=== PATIENT | male | born 1935 | race Caucasian/White ===

== ENCOUNTER 2016-04-15 10:34 | Emergency (ER) | payer MEDICARE ==
--- NOTE | 2016-04-15 11:02 | UC ---
Throat Pain/Nasal Sea HPI - HPI Summary HPI Summary: Patient has had sinus congestion. sore throat for 2 weeks. - History of Current Complaint Chief Complaint: UCGU Stated Complaint: URINARY, RESPIRATORY COMPLAINT Hx Obtained From: Patient Onset/Duration: Sudden Onset, Lasting Weeks Severity: Moderate Pain Intensity: 6 Pain Scale Used: 0-10 Numeric Cough: Nonproductive Associated Signs & Symptoms: Positive: Dysphagia, Hoarseness, Sinus Discomfort, Nasal Discharge Related History: Smoking - Epiglottits Risk Factors Epiglottis Risk Factors: Negative - Allergies/Home Medications Allergies/Adverse Reactions: Allergies Allergy/AdvReac Type Severity Reaction Status Date / Time Penicillins Allergy Severe Hives Verified 04/15/16 10:46 Home Medications: Home Medications Ascorbic Acid TAB* [Vitamin C TAB*] 2,000 mg PO DAILY 04/15/16 [History Confirmed 04/15/16] Aspirin [Aspirin Adult Low Dose] 81 mg PO DAILY 04/15/16 [History Confirmed ] Cholecalciferol TAB* [Vitamin D TAB*] 5,000 units PO DAILY 04/15/16 [History Confirmed 04/15/16] Coenzyme Q10 (Ubidecarenone) [Coq-10] 200 mg PO DAILY 04/15/16 [History Confirmed 04/15/16] Fluticasone HFA 110 mcg(NF) [Flovent HFA 110 mcg(NF)] 1 puff INH DAILY 04/15/16 [History Confirmed 04/15/16] Levothyroxine TAB* [Synthroid TAB*] 100 mcg PO DAILY 04/15/16 [History Confirmed 04/15/16] Metoprolol Succinate XL TAB* [Toprol XL TAB*] 50 mg PO DAILY 04/15/16 [History Confirmed 04/15/16] Mirabegron (NF) [Myrbetriq (NF)] 25 mg PO DAILY 04/15/16 [History Confirmed ] Multiple Vitamin [Multivitamins] 1 cap PO DAILY 04/15/16 [History Confirmed ] Nebivolol TAB (NF) [Bystolic TAB (NF)] 5 mg PO DAILY 04/15/16 [History Confirmed 04/15/16] Omeprazole CAP* [Prilosec CAP* 20 MG] 40 mg PO DAILY 04/15/16 [History Confirmed 04/15/16] Oxybutynin XL TAB* [Ditropan Xl TAB*] 10 mg PO DAILY 04/15/16 [History Confirmed 04/15/16] Probiotic Product [Acidophilus] 1 cap PO DAILY 04/15/16 [History Confirmed 04/15] Spironolactone TAB* [Aldactone TAB*] 25 mg PO DAILY 04/15/16 [History Confirmed 04/15/16] Torsemide TAB* [Demadex*] 5 mg PO DAILY 04/15/16 [History Confirmed 04/15/16] Warfarin TAB(*) [Coumadin TAB(*)] 3.5 mg PO DAILY 04/15/16 [History Confirmed ] amLODIPine TAB* [Norvasc TAB*] 5 mg PO DAILY 04/15/16 [History Confirmed ] PMH/Surg Hx/FS Hx/Imm Hx Previously Healthy: Yes Endocrine History Of: Reports: Thyroid Disease Denies: Diabetes, Hyperthyroidism, Hypothyroidism Cardiovascular History Of: Reports: Cardiac Disorders, Hypertension Denies: Pacemaker/ICD Respiratory History Of: Reports: Asthma Neurological History Of: Denies: TIA, Seizures Psychological History Of: Denies: Anxiety, Depression - Surgical History Surgical History: Yes Surgery Procedure, Year, and Place: LEFT SHOULDER ROTATOR CUFF REPAIR 04/2008, APPENDECTOMY , HERNIA , TENNIS ELBOW , PROSTATE(CANCER) 02/2001, BLADDER (CANCER) 06/2011, cardiac cath & QUAD BYPASS 04/11/2011 - Family History Known Family History: Positive: Respiratory Disease - Social History Alcohol Use: None Substance Use Type: None Smoking Status (MU): Former Smoker When Did the Patient Quit Smoking/Using Tobacco: 1962 - Immunization History Most Recent Influenza Vaccination: 2016 Review of Systems Constitutional: Chills Skin: Negative Eyes: Negative ENT: Sore Throat, Ear Ache, Nasal Discharge Respiratory: Shortness Of Breath, Cough Cardiovascular: Negative Gastrointestinal: Negative Genitourinary: Negative Motor: Negative Neurovascular: Negative Musculoskeletal: Negative Neurological: Headache Psychological: Negative All Other Systems Reviewed And Are Negative: Yes Physical Exam Triage Information Reviewed: Yes Appearance: Well-Nourished, Ill-Appearing, Pain Distress Vital Signs: Initial Vital Signs Temp 99.3 F 04/15/16 10:47 Pulse 70 04/15/16 10:47 Resp 20 04/15/16 10:47 BP 150/61 04/15/16 10:47 Pulse Ox 99 04/15/16 10:47 Vital Signs Reviewed: Yes Eye Exam: Normal Eyes: Positive: Conjunctiva Clear ENT: Positive: Hearing grossly normal, Pharynx normal, Nasal congestion, Nasal drainage, TMs normal, Muffled/hoarse voice Dental Exam: Normal Neck exam: Normal Neck: Positive: Supple, Nontender, No Lymphadenopathy Respiratory Exam: Normal Respiratory: Positive: Chest non-tender, No respiratory distress, No accessory muscle use, Decreased breath sounds, Wheezing, Inspiration Cardiovascular Exam: Normal Cardiovascular: Positive: RRR, No Murmur, Pulses Normal Abdominal Exam: Normal Abdomen Description: Positive: Nontender, No Organomegaly, Soft Bowel Sounds: Positive: Present Musculoskeletal Exam: Normal Musculoskeletal: Positive: Strength Intact, ROM Intact Neurological Exam: Normal Neurological: Positive: Alert, Muscle Tone Normal Psychological Exam: Normal Skin Exam: Normal Throat Pain/Nasal Course/Dx - Course Course Of Treatment: history obtained, exam performed, educated on symptom relief OTC and prescribed prednisone. given a spacer for her ventolin inhaler that she currently has. - Differential Dx/Diagnosis Differential Diagnosis/HQI/PQRI: Influenza, Laryngitis, Otitis Media, Pharyngitis, Sinusitis, Tonsillitis, URI Provider Diagnoses: bronchitis. nasal congestion
[2016-04-15] MEDS ORDERED: Ciprofloxacin TAB* 500 MG PO ONE (11:06)
[2016-04-15 11:08] VITALS: BP 150/61
--- NOTE | 2016-04-15 11:15 | UC ---
Complaint Male HPI - HPI Summary HPI Summary: UTI symptoms for 3d. Frequent UTI's in past. Also with mild cold symptoms for past week, drippy nose, mild ST, dry cough. No fever or vomiting. - History of Current Complaint Chief Complaint: UCGU Stated Complaint: URINARY, RESPIRATORY COMPLAINT Time Seen by Provider: 04/15/16 10:56 Hx Obtained From: Patient Onset/Duration: Gradual Onset Timing: Constant Severity Initially: Mild Severity Currently: Mild Location: Suprapubic Character: Constant Pressure Aggravating Factor(s): Nothing Associated Signs And Symptoms: Positive: Dysuria. Negative: Diaphoresis, Back Pain, Fever, Hematuria, Blood in Stool, Rectal Pain, Appetite, Nausea, Vomiting( # Of Episodes =) - Risk Factors Testicular Torsion: Negative - Allergies/Home Medications Allergies/Adverse Reactions: Allergies Allergy/AdvReac Type Severity Reaction Status Date / Time Penicillins Allergy Severe Hives Verified 04/15/16 10:46 Home Medications: Home Medications Ascorbic Acid TAB* [Vitamin C TAB*] 2,000 mg PO DAILY 04/15/16 [History Confirmed 04/15/16] Aspirin [Aspirin Adult Low Dose] 81 mg PO DAILY 04/15/16 [History Confirmed ] Cholecalciferol TAB* [Vitamin D TAB*] 5,000 units PO DAILY 04/15/16 [History Confirmed 04/15/16] Coenzyme Q10 (Ubidecarenone) [Coq-10] 200 mg PO DAILY 04/15/16 [History Confirmed 04/15/16] Fluticasone HFA 110 mcg(NF) [Flovent HFA 110 mcg(NF)] 1 puff INH DAILY 04/15/16 [History Confirmed 04/15/16] Levothyroxine TAB* [Synthroid TAB*] 100 mcg PO DAILY 04/15/16 [History Confirmed 04/15/16] Metoprolol Succinate XL TAB* [Toprol XL TAB*] 50 mg PO DAILY 04/15/16 [History Confirmed 04/15/16] Mirabegron (NF) [Myrbetriq (NF)] 25 mg PO DAILY 04/15/16 [History Confirmed ] Multiple Vitamin [Multivitamins] 1 cap PO DAILY 04/15/16 [History Confirmed ] Nebivolol TAB (NF) [Bystolic TAB (NF)] 5 mg PO DAILY 04/15/16 [History Confirmed 04/15/16] Omeprazole CAP* [Prilosec CAP* 20 MG] 40 mg PO DAILY 04/15/16 [History Confirmed 04/15/16] Oxybutynin XL TAB* [Ditropan Xl TAB*] 10 mg PO DAILY 04/15/16 [History Confirmed 04/15/16] Probiotic Product [Acidophilus] 1 cap PO DAILY 04/15/16 [History Confirmed 04/15] Spironolactone TAB* [Aldactone TAB*] 25 mg PO DAILY 04/15/16 [History Confirmed 04/15/16] Torsemide TAB* [Demadex*] 5 mg PO DAILY 04/15/16 [History Confirmed 04/15/16] Warfarin TAB(*) [Coumadin TAB(*)] 3.5 mg PO DAILY 04/15/16 [History Confirmed ] amLODIPine TAB* [Norvasc TAB*] 5 mg PO DAILY 04/15/16 [History Confirmed ] PMH/Surg Hx/FS Hx/Imm Hx Endocrine History Of: Reports: Thyroid Disease Denies: Diabetes, Hyperthyroidism, Hypothyroidism Cardiovascular History Of: Reports: Cardiac Disorders, Hypertension Denies: Pacemaker/ICD Respiratory History Of: Reports: Asthma Neurological History Of: Denies: TIA, Seizures Psychological History Of: Denies: Anxiety, Depression - Surgical History Surgical History: Yes Surgery Procedure, Year, and Place: LEFT SHOULDER ROTATOR CUFF REPAIR 04/2008, APPENDECTOMY , HERNIA , TENNIS ELBOW , PROSTATE(CANCER) 02/2001, BLADDER (CANCER) 06/2011, cardiac cath & QUAD BYPASS 04/11/2011 - Social History Occupation: Retired Lives: With Family Alcohol Use: None Substance Use Type: None Smoking Status (MU): Former Smoker When Did the Patient Quit Smoking/Using Tobacco: 1962 - Immunization History Most Recent Influenza Vaccination: 2015 Review of Systems Constitutional: Negative Skin: Negative Eyes: Negative ENT: Sore Throat, Nasal Discharge Respiratory: Cough Cardiovascular: Negative Gastrointestinal: Abdominal Pain - suprapubic Genitourinary: Negative Motor: Negative Neurovascular: Negative Musculoskeletal: Negative Neurological: Negative Psychological: Negative All Other Systems Reviewed And Are Negative: Yes Physical Exam Triage Information Reviewed: Yes Appearance: Well-Appearing, No Pain Distress, Well-Nourished Vital Signs: Initial Vital Signs Temp 99.3 F 04/15/16 10:47 Pulse 70 04/15/16 10:47 Resp 20 04/15/16 10:47 BP 150/61 04/15/16 10:47 Pulse Ox 99 04/15/16 10:47 Eye Exam: Normal ENT: Positive: Hearing grossly normal, Pharyngeal erythema, Nasal congestion, Nasal drainage, TMs normal. Negative: Tonsillar swelling, Tonsillar exudate, Muffled/hoarse voice Neck exam: Normal Neck: Positive: Supple Cardiovascular Exam: Normal Musculoskeletal Exam: Normal Neurological Exam: Normal Psychological Exam: Normal Skin Exam: Normal Diagnostics - Laboratory Diagnostic Studies Completed/Ordered: U/A dip positive for leuks, nitrite Complaint Male Course/Dx - Differential Dx/Diagnosis Provider Diagnoses: UTI; URI Discharge - Discharge Plan Condition: Stable Disposition: HOME Prescriptions: Benzonatate CAP* [Tessalon CAP*] 100 mg PO TID PRN #30 cap PRN Reason: Cough Chlorpheniramine-Dm [Coricidin Hbp Cough & Col] 1 tab PO Q6HR PRN #1 box PRN Reason: cough, congestion Ciprofloxacin HCl [Cipro] 500 mg PO BID #20 tab Patient Education Materials: Urinary Tract Infection in Men (ED), Upper Respiratory Infection (ED) Referrals: Moisés Jett MD [Primary Care Provider] -
== END 2016-04-15 11:15 | disposition home or self-care (01) ==
LOC: UCCORT 10:34
DX: N39.0 Urinary tract infection, site not specified (principal); E07.9 Disorder of thyroid, unspecified; I10 Essential (primary) hypertension; Z87.440 Personal history of urinary (tract) infections; Z95.1 Presence of aortocoronary bypass graft; Z88.0 Allergy status to penicillin; Z79.01 Long term (current) use of anticoagulants; Z79.82 Long term (current) use of aspirin
CPT/HCPCS: 87077; 87086; 87186; 99212; A9270-GY; G0463

== ENCOUNTER 2016-05-25 11:17 | Emergency (ER) | payer MEDICARE ==
[2016-05-25 12:13] VITALS: BP 126/61
--- NOTE | 2016-05-28 14:23 | UC ---
Respiratory Complaint HPI - HPI Summary HPI Summary: URI for a week, seems worse. Now coughing up purulent, "cream-colored" phlegm, malaise, low energy. No fever. No sinus congestion. Able to eat and drink. Worse when lying flat at night - History of Current Complaint Chief Complaint: UCRespiratory Stated Complaint: CHEST CONGESTION Time Seen by Provider: 05/25/16 12:25 Hx Obtained From: Patient Onset/Duration: Gradual Onset, Lasting Weeks - 1 Timing: Constant Severity Initially: Mild Severity Currently: Mild Pain Intensity: 0 Pain Scale Used: 0-10 Numeric Character: Sputum Description: - cream-colored, thick Aggravating Factors: Recumbent Position Alleviating Factors: Nothing Associated Signs And Symptoms: Positive: URI, Hoarseness. Negative: Dyspnea, Fever, Wheezing, Hemoptysis - Risk Factors Pulmonary Embolism Risk Factors: Negative Cardiac Risk Factors: Hypertension Pseudomonas Risk Factors: Negative Tuberculosis Risk Factors: Negative - Allergies/Home Medications Allergies/Adverse Reactions: Allergies Allergy/AdvReac Type Severity Reaction Status Date / Time Penicillins Allergy Severe Hives Verified 05/25/16 12:00 Home Medications: Home Medications Warfarin TAB(*) [Coumadin TAB(*)] 4 mg PO DAILY 05/25/16 [History Confirmed ] PMH/Surg Hx/FS Hx/Imm Hx Endocrine History Of: Reports: Thyroid Disease Denies: Diabetes, Hyperthyroidism, Hypothyroidism Cardiovascular History Of: Reports: Cardiac Disorders - QUAD BYPASS, Hypertension Denies: Pacemaker/ICD Respiratory History Of: Reports: Asthma Neurological History Of: Denies: TIA, Seizures Psychological History Of: Denies: Anxiety, Depression - Surgical History Surgical History: Yes Surgery Procedure, Year, and Place: LEFT SHOULDER ROTATOR CUFF REPAIR 04/2008, APPENDECTOMY , HERNIA , TENNIS ELBOW , PROSTATE(CANCER) 02/2001, BLADDER (CANCER) 06/2011, cardiac cath & QUAD BYPASS 04/11/2011 - Family History Known Family History: Positive: Hypertension - Social History Occupation: Retired Lives: With Family Alcohol Use: None Substance Use Type: None Smoking Status (MU): Never Smoked Tobacco When Did the Patient Quit Smoking/Using Tobacco: 1962 - Immunization History Most Recent Influenza Vaccination: 2015 Review of Systems Constitutional: Fatigue Skin: Negative Eyes: Negative ENT: Negative Respiratory: Cough Cardiovascular: Negative Gastrointestinal: Negative Genitourinary: Negative Motor: Negative Neurovascular: Negative Musculoskeletal: Negative Neurological: Negative Psychological: Negative All Other Systems Reviewed And Are Negative: Yes Physical Exam Triage Information Reviewed: Yes Appearance: Well-Appearing, No Pain Distress, Well-Nourished Vital Signs: Initial Vital Signs Temp 98.4 F 05/25/16 12:05 Pulse 67 05/25/16 12:05 Resp 20 05/25/16 12:05 BP 126/61 05/25/16 12:05 Pulse Ox 98 05/25/16 12:05 Vital Signs Reviewed: Yes Eye Exam: Normal ENT: Positive: Pharynx normal, TMs normal. Negative: TM bulging, TM dull, TM red, Tonsillar swelling, Tonsillar exudate, Trismus, Muffled/hoarse voice Neck exam: Normal Respiratory Exam: Normal Respiratory: Positive: Lungs clear, Normal breath sounds, No respiratory distress, No accessory muscle use Cardiovascular Exam: Normal Musculoskeletal Exam: Normal Neurological Exam: Normal Psychological Exam: Normal Skin Exam: Normal UC Diagnostic Evaluation - Laboratory O2 Sat by Pulse Oximetry: 98 Respiratory Course/Dx - Differential Dx/Diagnosis Differential Diagnosis/HQI/PQRI: Bronchitis, Lower Resp Infection, Sinusitis Provider Diagnoses: bronchitis Discharge - Discharge Plan Condition: Stable Disposition: HOME Prescriptions: Cephalexin CAP* [Keflex 500 CAP*] 500 mg PO TID #30 cap Guaifenesin-Codeine [Cheratussin AC] 2 teasp PO BEDTIME PRN #100 ml MDD 10cc PRN Reason: Cough Patient Education Materials: Acute Bronchitis (ED) Referrals: Claire Paniagua MD [Primary Care Provider] - Additional Instructions: There are some reports that people who are on omeprazole long-term seem to have a higher risk of kidney problems. They have not proven this definitively, but there is suspicion that omeprazole could be related. They suggest that people not use omeprazole for simple indigestion. YOu should discuss this with your doctor. If the omeprazole is used to treat serious stomach problems like ulcers or gastroesophageal reflux, then the benefit probably outweighs the risk. If your doctor feels it would be safe to try another medication, that would be another option.
== END 2016-05-25 12:44 | disposition home or self-care (01) ==
LOC: UCCORT 11:17
DX: J40 Bronchitis, not specified as acute or chronic (principal); Z88.0 Allergy status to penicillin; Z95.1 Presence of aortocoronary bypass graft; Z79.01 Long term (current) use of anticoagulants; Z87.891 Personal history of nicotine dependence
CPT/HCPCS: 99212; G0463

== ENCOUNTER 2017-04-27 09:00 | Inpatient (IN) | payer MEDICARE ==
--- NOTE | 2017-04-23 13:08 | HP ---
AMENDED REPORT NOW INCLUDES COSIGNER DESIGNATION - ESIGNED BEFORE ADJUSTMENT HISTORY AND PHYSICAL: DATE OF SURGERY: 04/27/17 DATE OF OFFICE VISIT: 04/16/17 SURGEON: Chen Alarcon MD * (DICTATED BY JEAN CLAUDE HOU) PROCEDURE: Left total knee arthroplasty. CHIEF COMPLAINT: Left knee pain. HISTORY OF PRESENT ILLNESS: Mr. Braswell is an 81-year-old gentleman with continued complaints of left knee pain secondary to end-stage osteoarthritis. He has failed conservative management and elected to proceed with a left total knee arthroplasty, which is scheduled for 04/27/[address] Alarcon. PAST MEDICAL HISTORY: 1. History of prostate cancer. 2. History of DVT/PE. 3. Coronary artery disease. 4. Hypertension. 5. High cholesterol. 6. AFib. 7. Congestive heart failure. 8. Stage 3 kidney disease. 9. Hypothyroidism. 10. Asthma. 11. Bladder cancer. PAST SURGICAL HISTORY: 1. Prostatectomy. 2. Removal of bladder tumor. 3. Appendectomy. 4. Hernia repair. 5. Tennis elbow surgery. 6. Left shoulder rotator cuff repair. 7. CABG. CURRENT MEDICATIONS: 1. Flovent. 2. Levothyroxine 100 mcg daily. 3. Torsemide 5 mg daily. 4. Omeprazole 40 mg daily. 5. Acidophilus. 6. Multivitamin. 7. Oxybutynin 10 mg daily. 8. Spironolactone 25 mg daily. 9. Pravastatin sodium 40 mg q.h.s. 10. Warfarin sodium 3 mg as directed. 11. Myrbetriq 25 mg daily. 12. Vitamin C. 13. Vitamin D. 14. CoQ10. 15. Bystolic. ALLERGIES: PENICILLIN. FAMILY HISTORY: Coronary artery disease and cancer. SOCIAL HISTORY: He is an 81-year-old gentleman. Lives alone. He does not smoke, use drugs, or alcohol. REVIEW OF SYSTEMS: A complete 14-point review of systems was reviewed with the patient. It was positive for hypertension, asthma, stage 3 kidney disease, DVT/ PE, GERD, and history of an MRSA infection of the left knee. He denies a history of hepatitis C, HIV, or anesthesia problems. PHYSICAL EXAMINATION GENERAL: He is well developed, well nourished, in no acute distress. VITAL SIGNS: He stands 6 feet tall, weighs 205 pounds. His blood pressure is 116/74, his heart rate is 70. HEENT: Normocephalic, atraumatic. NECK: Supple. No palpable lymph nodes. PULMONARY: Lungs are clear to auscultation bilaterally. CARDIO: Regular rate and rhythm. Strong S1, S2. ABDOMEN: Soft, nontender, nondistended. NEUROLOGICAL: He is alert and oriented x3. Cranial nerves II through XII are intact. MUSCULOSKELETAL: Left lower extremity, the skin is intact. There are no open wounds or abrasions. He has a moderate joint effusion. He has some tenderness over the medial and lateral joint line. 15 to 120 degrees of flexion. 1+ pitting edema. 2+ dorsalis pedis. 5/5 lower extremity strength and intact sensation. ASSESSMENT AND PLAN: Mr. Braswell is an 81-year-old gentleman with severe degenerative osteoarthritis of his left knee. He has failed conservative management and elected to proceed with a left total knee arthroplasty, which is scheduled for 04/27/[address] Alarcon discussed the risks and benefits of the surgery at today's visit and all of his questions were answered. He will follow with Dr. Alarcon 2 weeks after the surgery. JEAN CLAUDE HOU [id number]/[facility] #: [id number] [id number]
[~2017-04-27 09:00] MED LIST: Buffered Lidocaine 0.9% SYRIN* 5 ML/SYR SYRINGE INTRADERM ONE; Dexamethasone IV* 4 MG/ML 1 ML (4 MG) IV SLOW PU ONE; Ondansetron INJ* 2 MG/ML VIAL IV ONE; Sodium Citrate/Citric Acid* 15 ML UDC PO ONE
[2017-04-27] MEDS ORDERED: Midazolam* 1 MG/ML 2 ML VIAL (2 MG) ONE (11:15)
[2017-04-27] MEDS ORDERED: fentaNYL* 50 MCG/ML 2 ML VIAL (100 MCG VIAL) ONE ×3 (11:15→17:46)
[2017-04-27] MEDS ORDERED: Propofol* 10 MG/ML 20 ML BTL IV PUSH ONE (11:17)
[2017-04-27] MEDS ORDERED: Lidocaine 2% PF * 5 ML VIAL ONE (11:17)
--- OUTSIDE RECORDS SUMMARY | 2017-04-27 12:14 | XMS REPORT ---
:1935 External Reference #:[id number] Author Organization [facility] Address [address] [address] Phone [phone] Care Team Providers Name Role Phone Claire Paniagua MD Primary Care Physician Unavailable Payers Type Date Identification Numbers Payment Provider Subscriber Medicare Primary Effective: Policy Number: Medicare Kenan Braswell 2000 [id number] PayID: [id number] [address] [place] [address] Commercial Policy Number: [id number] Today's Option Of [place] Kenan Braswell PayID: [id number] [address] [place] [address] Medigap Part B Effective: Policy Number: [place] Kenan Braswell 2012 [id number] Healthcare Expires: 2017 PayID: [id number] [address] [place] [address] Problems Date Description Provider Status Onset: 06/06/2014 Idiopathic peripheral neuropathy Breanne Reyes M.D. Active Onset: 04/02/2017 Localized, primary osteoarthritis Chen Alarcon M.D. Active Family History Date Family Member(s) Problem(s) Comments General Breast Cancer General Bladder Cancer General Prostate Cancer General Heart Disease Social History Type Date Description Comments Occupation Retired ETOH Use Denies alcohol use Smoking Patient has never smoked Recreational Drug Use Denies Drug Use Daily Caffeine Consumes on average 2 cups of regular coffee per day Exercise Type/Frequency Does not exercise Allergies, Adverse Reactions, Alerts Date Description Reaction Status Severity Comments 08/18/2012 Penicillin active Medications Medication Date Status Form Strength Qnty SIG Indications Ordering Provider Percocet 04/02/ Active Tablets 5-325mg 90tabs 1-2 tabs M17.0 Chen 2018 by mouth Dorian, q8 as M.D. needed pain Flovent HFA / Active Aerosol 110mcg/Act 1units 2 puffs Unknown 0000 twice daily Levothroid / Active Tablets 100mg 90tabs qam Unknown 0000 Torsemide / Active Tablets 5mg 90tabs 1 po qd Unknown 0000 Omeprazole / Active Capsules 40mg 90caps 1 po qd Unknown [address] Acidophilus / Active Capsules 1 po qd Unknown 0000 Multiple / Active Tablets 1 po qd Unknown Vitamins 0000 Oxybutynin / Active Tablets ER 10mg 90tabs 1 by Unknown Chloride ER 0000 24HR mouth every day Spironolactone / Active Tablets 25mg 90tabs 1 by Unknown 0000 mouth every day Pravastatin / Active Tablets 40mg 30tabs 1 tablet Unknown Sodium 0000 daily at bedtime Warfarin Sodium / Active Tablets 3mg 100tab take as Unknown 0000 s directed Myrbetriq / Active Tablets ER 25mg by mouth Unknown 0000 24HR every day Vitamin C / Active Tablets 1000mg 2 by Unknown 0000 mouth every day Vitamin D / Active Tablets 1000Unit 5 tab Unknown (Cholecalciferol 0000 each day ) by mouth Coq-10 / Active Capsules 200mg 1 by Unknown 0000 mouth every day Bystolic / Active Tablets 5mg one tab Crenshaw, 0000 by mouth MD Jose daily Gabapentin 06/06/ Hx Capsules 100mg 90caps 3 capsule 356.4 Breanne 2014 - by mouth Eric, 06/11/ every M.D. 2016 night Metoprolol // Hx Tablets ER 50mg 90tabs 1 po qd Unknown Succinate ER 0000 - 24HR 2016 Losartan /00/ Hx Tablets 25mg 90tabs 1 po qd Unknown Potassium 0000 - 2015 Aspirin Ec / Hx Tablets DR 81mg 100tab 1 po qd Unknown 0000 - s 2014 Lovastatin // Hx Tablets 20mg 90tabs po qhs Unknown 0000 - 2014 Medications Administered in Office Medication Date Status Form Strength Qnty SIG Indications Ordering Provider Celestone 3 mg Administered Injection Dorian M and 3mg 017 MD Kun Celestone 3 mg Administered Injection Dorian M and 3mg 017 MD Kun Celestone 3 mg Administered Injection Dorian M and 3mg 017 MD Kelli Tristanestone 3 mg Administered Injection Dorian M and 3mg 017 MD Kun Celestone 3 mg Administered Injection Dorian M and 3mg 017 MD Kelli Tristanestone 3 mg Administered Injection Dorian M and 3mg 017 MD Kelli Tristanestone 3 mg Administered Injection Dorian M and 3mg 017 MD Kelli Tristanestone 3 mg Administered Injection Dorian M and 3mg 017 MD Kun Depomedrol Administered Injection Dorian M 40MG 017 MD Kun Depomedrol Administered Injection Dorian M 40MG 016 MD Kun Depomedrol Administered Injection Dorian M 40MG 016 MD Kun Depomedrol Administered Injection Eleno 80MG 014 Marianna Alvarenga Depomedrol Administered Injection Eleno 80MG 014 Marianna Alvarenga Injection Administered Injection Pérez Hyaluronan Or 013 Veigel, Derivative, M.D. Euflexxa Per Dose Injection Administered Injection Pérez Hyaluronan Or 013 Veigel, Derivative, M.D. Euflexxa Per Dose Injection Administered Injection Pérez Hyaluronan Or 013 Veigel, Derivative, M.D. Euflexxa Per Dose Injection Administered Injection Pérez Hyaluronan Or 013 Veigel, Derivative, M.D. Euflexxa Per Dose Injection Administered Injection Pérez Hyaluronan Or 013 Veigel, Derivative, M.D. Euflexxa Per Dose Injection Administered Injection Pérez Hyaluronan Or 013 Veigel, Derivative, M.D. Euflexxa Per Dose Depomedrol Administered Injection Pérez 40MG 013 Veigel, M.D. Vital Signs Date Vital Result Comment 04/02/2017 Height 70 inches 5'10" Weight 217.00 lb BP Systolic 140 mmHg BP Diastolic 76 mmHg Body Temperature 98.1 F Pain Level 10 BMI (Body Mass Index) 31.1 kg/m2 03/16/2017 Height 70 inches 5'10" Weight 222.00 lb Heart Rate 60 /min BP Systolic Sitting 110 mmHg BP Diastolic Sitting 62 mmHg Respiratory Rate 18 /min Pain Level 5 BMI (Body Mass Index) 31.9 kg/m2 12/07/2016 Height 70 inches 5'10" Weight 225.00 lb Heart Rate 66 /min BP Systolic Sitting 126 mmHg BP Diastolic Sitting 66 mmHg Respiratory Rate 12 /min Pain Level 7 BMI (Body Mass Index) 32.3 kg/m2 09/07/2016 Height 70 inches 5'10" Weight 240.00 lb Heart Rate 98 /min BP Systolic 122 mmHg BP Diastolic 70 mmHg Respiratory Rate 16 /min Pain Level 8 BMI (Body Mass Index) 34.4 kg/m2 08/18/2016 Height 70 inches 5'10" Weight 240.00 lb Heart Rate 70 /min BP Systolic Sitting 122 mmHg BP Diastolic Sitting 70 mmHg Respiratory Rate 15 /min Pain Level 1 when sitting, when standing 8 BMI (Body Mass Index) 34.4 kg/m2 06/03/2016 Height 70 inches 5'10" Weight 240.00 lb Heart Rate 69 /min BP Systolic Sitting 120 mmHg BP Diastolic Sitting 78 mmHg Respiratory Rate 18 /min Pain Level 8 BMI (Body Mass Index) 34.4 kg/m2 01/06/2016 Height 70 inches 5'10" Weight 240.00 lb BP Systolic 122 mmHg BP Diastolic 66 mmHg Pain Level 5 BMI (Body Mass Index) 34.4 kg/m2 11/14/2015 Height 70 inches 5'10" Weight 240.00 lb Heart Rate 78 /min BP Systolic Sitting 122 mmHg BP Diastolic Sitting 78 mmHg Pain Level 3 06/05 pain level BMI (Body Mass Index) 34.4 kg/m2 06/13/2015 Weight 240.00 lb Heart Rate 76 /min BP Systolic Sitting 128 mmHg BP Diastolic Sitting 80 mmHg 09/04/2014 Height 70 inches 5'10" Weight 240.00 lb Heart Rate 64 /min BP Systolic Sitting 128 mmHg BP Diastolic Sitting 70 mmHg BMI (Body Mass Index) 34.4 kg/m2 06/06/2014 Height 70 inches 5'10" Weight 244.00 lb Heart Rate 72 /min BP Systolic Sitting 128 mmHg BP Diastolic Sitting 64 mmHg Respiratory Rate 16 /min BMI (Body Mass Index) 35.0 kg/m2 08/18/2012 Height 70 inches 5'10" Weight 225.00 lb BMI (Body Mass Index) 32.3 kg/m2 Results Test Date Test Result H/L Range Note Xray 11/21/2012 Knee 3 Views Bilateral <pending> Procedures Date CPT Code Description Status 03/16/2017 Inject/Drain Joint/Bursa Major Completed 12/07/201687325 Inject/Drain Joint/Bursa Major Completed 09/07/2016 Inject/Drain Joint/Bursa Major Completed 08/18/2016 Inject/Drain Joint/Bursa Major Completed 06/03/2016 Inject/Drain Joint/Bursa Major Completed 01/06/2016 Inject/Drain Joint/Bursa Major Completed 11/14/2015 84817 Xray Knee 3 Views Completed 11/14/2015 Inject/Drain Joint/Bursa Major Completed 11/07/201378416 Inject/Drain Joint/Bursa Major Completed 10/03/201329473 Inject/Drain Joint/Bursa Major Completed 10/03/2013 45799 Xray Knee 3 Views Completed 10/03/2013 90528 Xray Knee 3 Views Completed 10/03/2013 16783 Rad Exam; Knee Comp Completed 01/10/2013 Inject/Drain Joint/Bursa Major Completed 01/03/2013 Inject/Drain Joint/Bursa Major Completed 12/27/201293368 Inject/Drain Joint/Bursa Major Completed 11/21/2012 20117 Xray Knee 3 Views Completed 11/21/2012 86145 Xray Knee 3 Views Completed 11/21/2012 Inject/Drain Joint/Bursa Major Completed Encounters Type Date Location Provider CPT E/M Dx Office Visit 04/02/2017 11:00a [facility] Alarcon M.D. 68660 M17.0 [facility] M25.561 M25.562 M25.461 M25.462 Office Visit 09/07/2016 10:15a [facility] [address] M75.122 [facility] [place] M75.121 Office Visit 08/18/2016 1:45p [facility] [place] [address] M17.0 [facility] [place] Office Visit 06/03/2016 9:30a [facility] [place] [address] M17.11 [facility] [place] Office Visit 11/14/2015 11:00a [facility] [address] M17.0 [facility] [place] Office Visit 06/13/2015 10:00a [facility], [address] [facility]/2014 11:00a [place] Breanne Reyes M.D. 25101 356.4 [facility] Office Visit 06/06/2014 9:00a [place] [facility] Breanne Reyes M.D. 20736 356.4 [facility] 333.1 Office Visit 11/07/2013 10:15a [facility] 83260 715.16 [facility]2013 9:45a [facility] 61485 715.16 [facility] Office Visit 02/14/2013 9:00a [facility] Pérez Taylor M.D. 77160 724.2 At [place] 715.16 Office Visit 12/22/2012 2:30p [facility] Pérez Taylor M.D. 32093 715.16 At [place] Office Visit 11/21/2012 2:30p [facility] Pérez Taylor M.D. 96749 715.18 At [place] 715.16 Office Visit 09/15/2012 2:00p [facility] Keo Rooney M.D. 51994 727.62 [facility] Office Visit 08/18/2012 3:00p [facility] Pérez Taylor M.D. 37692 719.41 At [place] Plan of Care Future Appointment(s):04/16/2017 9:45 am - Chen Alarcon M.D. at [facility]04/02/2017 - Chen Alarcon M.D.M17.0 Bilateral primary osteoarthritis of kneeNew Medication:Percocet 5-325 mgFollow up:Follow up: 7- 10 days before mmwrkazO50.561 Pain in right kneeNew Xrays:Knee 3 Views EwesbgloeY92.562 Pain in left kneeNew Xrays:Knee 3 Views NfuqdnutaI01.461 Effusion, right kneeM25.462 Effusion, left knee
--- OUTSIDE RECORDS SUMMARY | 2017-04-27 12:14 | XMS REPORT ---
:1935 External Reference #:[id number] Author Organization [facility] Address [address] [address] Phone [phone] Care Team Providers Name Role Phone Claire Paniagua MD Primary Care Physician Unavailable Payers Type Date Identification Numbers Payment Provider Subscriber Commercial Policy Number: [id number] [employer] Kenan Braswell PayID: [id number] [address] [address] Attn: [place] [address] Medigap Part B Effective: 1999 Policy Number: Medicare Kenan Braswell [id number] Expires: 2017 PayID: [id number] [address] [place] [address] Problems Date Description Provider Status Onset: 06/06/2014 [...] Tablets 5-325mg 90tabs 1-2 tabs M17.0 Chen 2017 by mouth Dorian, q8 as M.D. needed pain Flovent HFA / Active Aerosol 110mcg/Act 1units 2 puffs Unknown 0000 twice daily Levothroid / Active Tablets 100mg 90tabs qam Unknown 0000 Torsemide / Active Tablets 5mg 90tabs 1 po qd Unknown 0000 Omeprazole 00/ Active Capsules 40mg 90caps 1 po qd [...] Eric, 06/11/ every M.D. 2016 night Metoprolol / Hx Tablets ER 50mg 90tabs 1 po qd Unknown Succinate ER 0000 - 24HR 2016 Losartan / Hx Tablets 25mg 90tabs 1 po qd Unknown Potassium 0000 - 2015 Aspirin Ec / Hx Tablets DR 81mg 100tab 1 po qd Unknown 0000 - s 2014 Lovastatin / Hx Tablets 20mg 90tabs po qhs Unknown [...] MD Kun Depomedrol Administered Injection Eleno 80MG David Alvarenga M.D. Depomedrol Administered Injection Eleno 80MG David Alvarenga M.D. Injection Administered Injection Pérez Hyaluronan Or 013 [...] Dose Depomedrol Administered Injection Pérez 40MG 013 Veantoni, MIoanaD. Vital Signs Date Vital Result Comment 04/16/2017 Height 70 inches 5'10" Weight 205.00 lb w/ shoes Heart Rate 70 /min reg BP Systolic Sitting 116 mmHg Lue BP Diastolic Sitting 74 mmHg Lue Respiratory Rate 16 /min Pain Level 9 left knee BMI (Body Mass Index) 29.4 kg/m2 04/02/2017 Height 70 inches 5'10" Weight 217.00 [...] Description Status 03/16/2017 Inject/Drain Joint/Bursa Major Completed 12/07/2016 Inject/Drain Joint/Bursa Major Completed 09/07/2016 Inject/Drain Joint/Bursa Major Completed 08/18/2016 Inject/Drain Joint/Bursa Major Completed 06/03/2016 Inject/Drain Joint/Bursa Major Completed 01/06/2016 Inject/Drain Joint/Bursa Major Completed 11/14/2015 81029 Xray Knee 3 Views Completed 11/14/2015 Inject/Drain Joint/Bursa Major Completed 11/07/2013 Inject/Drain Joint/Bursa Major Completed 10/03/201325064 Inject/Drain Joint/Bursa Major Completed 10/03/2013 43361 Xray Knee 3 Views Completed 10/03/2013 07872 Xray Knee 3 Views Completed 10/03/2013 62870 Rad Exam; Knee Comp Completed 01/10/2013 Inject/Drain Joint/Bursa Major Completed 01/03/2013 Inject/Drain Joint/Bursa Major Completed 12/27/201285272 Inject/Drain Joint/Bursa Major Completed 11/21/2012 68561 Xray Knee 3 Views Completed 11/21/2012 31492 Xray Knee 3 Views Completed 11/21/2012 Inject/Drain Joint/Bursa Major Completed Encounters Type Date Location Provider CPT E/M Dx Office Visit 04/02/2017 11:00a [facility] Chen Alarcon M.D. 62906 M17.0 [facility] M25.562 M25.561 M25.461 M25.462 Office Visit 09/07/2016 10:15a [facility] [place] [address] M75.122 [facility] [place] M75.121 Office Visit 08/18/2016 1:45p [facility] [place] [address] M17.0 [facility] [place] Office Visit 06/03/2016 9:30a [facility] [place] [address] M17.11 [facility] [place] Office Visit 11/14/2015 11:00a [facility] [address] M17.0 [facility] [place] Office Visit 06/13/2015 10:00a [facility] Sheryl Jurado, [address] H90.5 [facility] 09/04/2014 11:00a [place] Breanne Reyes M.D. 43168 356.4 [facility] Office Visit 06/06/2014 9:00a [facility] Breanne Reyes M.D. 34243 356.4 Services Of [facility] 333.1 Office Visit 11/07/2013 10:15a [facility] Alvarenga 63599 715.16 [facility] 10/03/2013 9:45a [facility] Eleno Alvarenga [address]6926 715.16 [facility] Visit 02/14/2013 9:00a [facility] Pérez Taylor M.D. 57308 724.2 At [place] 715.16 Office Visit 12/22/2012 2:30p [facility] Pérez Taylor M.D. 61024 715.16 At [place] Office Visit 11/21/2012 2:30p [facility] Pérez Taylor M.D. 35651 715.18 At [place] 715.16 Office Visit 09/15/2012 2:00p [facility] Keo Rooney M.D. 23503 727.62 [facility] Office Visit 08/18/2012 3:00p [facility] Pérez Taylor M.D. 54651 719.41 At [place] Plan of Care Future Appointment(s):05/10/2017 1:45 pm - Chen Alarcon M.D. at [facility]04/27/2017 9:00 am - JEAN CLAUDE Bautista at [facility]04/27/2017 9:00 am - Russ Reeves PA-C at [facility]04/27/2017 9:00 am - JEAN CLAUDE Dejesus at [facility]04/27/2017 9:00 am - Chen Alarcon M.D. at [facility]
[2017-04-27] MEDS ORDERED: Ondansetron INJ* 2 MG/ML VIAL ONE ×2 (12:23→15:46)
[2017-04-27] MEDS ORDERED: Dexamethasone IV* 4 MG/ML 1 ML (4 MG) ONE (12:24)
[2017-04-27] MEDS ORDERED: Clindamycin 900 MG IVPREMIX(* 900 MG/50 ML SDV IV ONE (12:24)
[2017-04-27] MEDS ORDERED: Buffered Lidocaine 0.9% SYRIN* 5 ML/SYR SYRINGE ONE (12:24)
[2017-04-27] MEDS ORDERED: Sodium Citrate/Citric Acid* 15 ML UDC ONE ×2 (12:24→14:14)
[2017-04-27] MEDS ORDERED: Rocuronium* 10 MG/ML VIAL ONE ×2 (13:50→15:21)
[2017-04-27 14:35] LABS: INR 1.13 (0.77-1.02)
[2017-04-27] MEDS ORDERED: Glycopyrrolate IV* 0.2 MG/ML 1 ML VIAL ONE (14:37)
[2017-04-27] MEDS ORDERED: EPHEDrine (Pressors)* 50 MG/ML VIAL ONE (14:37)
[2017-04-27] MEDS ORDERED: Etomidate* 2 MG/ML 10 ML VIAL ONE (14:37)
[2017-04-27] MEDS ORDERED: HYDROmorphone INJ* 1 MG/ML CARPUJECT SYRINGE ONE (14:44)
[2017-04-27] MEDS ORDERED: Levalbuterol 0.63MG/3ML NEB* UNIT OF USE INH PRN (14:47)
[2017-04-27] MEDS ORDERED: HYDROmorphone INJ* 1 MG/ML CARPUJECT SYRINGE IV PRN (14:47)
[2017-04-27] MEDS ORDERED: oxyCODONE TAB* 5 MG TAB PO PRN (14:47)
[2017-04-27] MEDS ORDERED: PROCHLORPERAZINE INJ 5 MG/ML 2 ML VIAL IV PRN (14:47)
[2017-04-27] MEDS ORDERED: Naloxone* 0.4 MG/ML 1 ML VIAL IV PRN (14:47)
[2017-04-27] MEDS ORDERED: Acetaminophen IV 1GM/100ML * 1,000 MG/100 ML VIAL IVPB ONE (14:47)
[2017-04-27] MEDS ORDERED: Sugammadex * 200 MG/2 ML VIAL IV PUSH ONE (15:41)
[2017-04-27] MEDS ORDERED: Polyethylene Glycol 3350* 17 GM PACKET PO PRN (16:10)
[2017-04-27] MEDS ORDERED: diPHENhydraMINE IV* 50 MG/ML 1 ml VIAL (BENADRYL) IV PRN (16:10)
[2017-04-27] MEDS ORDERED: Magnesium Hydroxide LIQ* 30 ML UDC PO PRN (16:10)
[2017-04-27] MEDS ORDERED: oxyCODONE/Acetamin 5/325 MG* TAB PO PRN (16:10)
[2017-04-27] MEDS ORDERED: Acetaminophen TAB* 325 MG PO PRN (16:10)
[2017-04-27] MEDS ORDERED: Bisacodyl SUPP* 10 MG SUPP PR PRN (16:10)
[2017-04-27] MEDS ORDERED: Morphine INJ* 2 MG/ML 1 ML CARPUJECT IV PRN (16:10)
[2017-04-27] MEDS ORDERED: Cyclobenzaprine TAB* 10 MG PO PRN (16:10)
[2017-04-27] MEDS ORDERED: Ondansetron INJ* 2 MG/ML VIAL IV PRN (16:10)
[2017-04-27] MEDS ORDERED: Ondansetron TAB* 4 MG PO PRN (16:10)
[2017-04-27] MEDS ORDERED: Fluticasone HFA 110 mcg(NF) MDI INH PRN (16:18)
[2017-04-27] MEDS ORDERED: Acetaminophen IV 1GM/100ML * 100 ML ONE (16:23)
[2017-04-27] MEDS ORDERED: Levalbuterol 0.63MG/3ML NEB* UNIT OF USE INH ONE (16:24)
[2017-04-27] MEDS ORDERED: Bupivacaine 0.25% SDV* 30 ML ONE (16:30)
[2017-04-27] MEDS ORDERED: Warfarin TAB(*) 6 MG PO ONE ×2 (17:00→20:00)
[2017-04-27] MEDS: fentaNYL* 50 MCG/ML 2 ML VIAL (100 MCG VIAL) IV PRN ×2 (17:48→18:08)
--- NOTE | 2017-04-27 17:57 | RAD ---
INDICATION: Status post total left knee replacement surgery. COMPARISON: Comparison is made with a prior x-ray study of the knees from April 02, 2017. TECHNIQUE: 2 views of the left knee were obtained. FINDINGS: The patient is status post total left knee replacement surgery. The bones and prostheses are in normal alignment. There is a surgical drain anterior to the distal femur. IMPRESSION: STATUS POST TOTAL LEFT KNEE REPLACEMENT SURGERY.
[2017-04-27] MEDS ORDERED: oxyCODONE TAB* 5 MG TAB ONE (19:19)
[2017-04-27] MEDS: Docusate CAP* 100 MG PO SCH (20:24)
[2017-04-27] MEDS: Atorvastatin* 20 MG TAB PO SCH (20:24)
[2017-04-27] MEDS: Magnesium Hydroxide LIQ* 30 ML UDC PO SCH (20:25)
[2017-04-27] MEDS: Clindamycin 600 MG IVPREMIX(* 600 MG/50 ML SDV IV SCH (22:36)
[2017-04-27] MEDS: oxyCODONE/Acetamin 5/325 MG* TAB PO PRN (22:42)
--- NOTE | 2017-04-27 23:09 | CONS ---
CC: Chen Alarcon MD; Dr. Claire Paniagua * CONSULTATION REPORT: DATE OF CONSULT: 04/27/17 PRIMARY CARE PROVIDER: Dr. Claire Paniagua. PHYSICIAN REQUESTING CONSULTATION: Dr. Chen Alarcon. ATTENDING PHYSICIAN: Dr. Debi Shah (dictated by Brandi Martin NP) REASON FOR CONSULTATION: Co-medical management in a patient with a history of bladder and prostate cancer, history of bilateral PE and DVT, CAD, hypertension , hypercholesterolemia, atrial fibrillation, congestive heart failure, chronic kidney disease stage 3, who presented to the hospital for an elective left total knee arthroplasty with Dr. Chen Alarcon today. The patient states that leading up to the procedure, he has been in his usual state of health. He denies any fever, chills, chest pain, shortness of breath, nausea, vomiting, diarrhea. His only complaint is persistent left knee pain. Postoperatively, the patient is doing well. He reports that pain is controlled. Hospitalist Medicine were asked to assist with co-medical management of this patient during his hospitalization. PAST MEDICAL HISTORY: 1. History of bladder cancer. 2. History of bilateral PE and DVT. 3. Coronary artery disease. 4. Hypertension. 5. Hyperlipidemia. 6. Atrial fibrillation. 7. Congestive heart failure. 8. Stage 3 chronic kidney disease. 9. Hypothyroidism. 10. Asthma. 11. Prostate cancer. 12. BPH. 13. Low back pain. 14. Aortic valve stenosis. 15. Osteoarthritis. PAST SURGICAL HISTORY: 1. Status post prostatectomy. 2. Status post transurethral resection of bladder tumor. 3. Status post appendectomy. 4. Status post hernia repair. 5. Status post right tennis elbow surgery. 6. Status post left shoulder rotator cuff repair. 7. Status post 4-vessel CABG. HOME MEDICATIONS: Include: 1. Flovent 110 mcg inhalation daily. 2. Levothyroxine 100 mcg oral daily. 3. Aspirin 81 mg oral daily. 4. Omeprazole 40 mg oral daily. 5. Acidophilus 1 tablet oral daily. 6. Multivitamin 1 tablet oral daily. 7. Oxybutynin ER 10 mg oral daily. 8. Spironolactone 25 mg oral daily. 9. Pravastatin 80 mg oral every evening. 10. Warfarin 3 mg oral daily, adjust as directed. 11. Myrbetriq 25 mg oral daily. 12. Vitamin C 2000 mg oral daily. 13. Vitamin D 5000 units oral daily. 14. CoQ10 200 mg oral daily. 15. Bystolic 5 mg oral daily. 16. Amlodipine 5 mg oral daily. ALLERGIES: PENICILLIN. FAMILY HISTORY: The patient reports a family history of coronary artery disease and cancer. SOCIAL HISTORY: The patient lives alone. He denies smoking, tobacco, or recreational drug use. The patient's brother, Eleno Braswell, will be his surrogate decision maker in the event he is unable to make decisions for himself. REVIEW OF SYSTEMS: I performed an 11-point review of systems. All the pertinent positives and negatives are mentioned in the history of present illness. The remaining review of systems are negative. PHYSICAL EXAMINATION: Vital Signs: Temperature 97.9, heart rate 82, respiratory rate 16, O2 sat 96% on 4 L, blood pressure 122/59. General Appearance: The patient is alert, pleasant, appears to be in no acute distress. HEENT: Normocephalic, atraumatic. Pupils are equal and reactive to light. Extraocular movements are intact. Respiratory: There is no accessory muscle use. Lungs are clear to auscultation. Cardiovascular: Regular rate and rhythm. S1 and S2 are present. The patient has a grade 3/6 systolic murmur heard best at the left upper sternal border and right upper sternal border. Abdomen: Soft, nontender, nondistended. Bowel sounds present x4. Extremities: No lower extremity edema. DP and PT pulses are 2+ and symmetric. Musculoskeletal: There is no clubbing or cyanosis noted. The patient moves all extremities. Neurological: Alert and oriented x4. Cranial nerves II through XII are grossly intact. Psychological: The patient is calm and cooperative. Skin: There are no rashes or abnormalities seen. The patient has a dressing to his left knee that is clean, dry and intact. DIAGNOSTIC STUDIES/LAB DATA: Preop labs from 04/16/17, sodium 135, potassium 4.9, chloride 97, CO2 26, BUN 32, creatinine 1.65. Glucose 90, white blood cell count 9.0, hemoglobin 12.4, hematocrit 36 and platelet count 453. IMPRESSION: Mr. Braswell is an 81-year-old male with past medical history significant for bladder and prostate cancer, bilateral pulmonary emboli and deep venous thrombosis, coronary artery disease, hypertension, hyperlipidemia, atrial fibrillation, congestive heart failure, stage 3 chronic kidney disease, hypothyroidism, aortic valve stenosis, and osteoarthritis who presented to the hospital today for an elective left total knee arthroplasty with Dr. Chen Alarcon. Hospitalists have been asked to assist with co-medical management in this patient during his hospitalization. ASSESSMENT: 1. Status post left total knee arthroplasty. Postop day, management will be per Orthopedic Surgery. The patient will have PT/OT starting in the morning. He will have urinary catheter in place through day 1. He will be placed on a pain medication regimen in addition to a bowel regimen. I suspect this patient is going to need short-term rehab stay. He is requesting to have rehab in [place] as it is closer to his home. We will ask Social Work to assist with setting the patient up with rehab. 2. History of coronary artery disease. The patient will be continued on his home Bystolic, statin and resumed on aspirin when approved by Orthopedic Surgery. 3. Hypertension. The patient is normotensive in the operating room for now, we will continue him on his amlodipine. 4. History of atrial fibrillation. The patient reports that he has been in sinus rhythm since he had a cardioversion. He will be continued on his Bystolic. He is being resumed on warfarin. 5. Congestive heart failure. The patient will be continued on his home spironolactone and torsemide. We will cautiously give him IV fluids overnight. 6. Chronic kidney disease stage 3. The patient's preop labs show that his creatinine is higher than it had been previously. I am unsure if at this point it is his new baseline as the previous labs were a year prior. We will follow his creatinine. 7. Hyperlipidemia. The patient will be continued on his home statin. 8. History of pulmonary emboli and deep venous thrombosis. The patient will be continued on warfarin. 9. Hypothyroidism. The patient will be continued on his home levothyroxine. 10. History of bladder and prostate cancer. The patient will follow with his primary. 11. Fluids, electrolytes, and nutrition. The patient will be on a clear liquid , advance diet as tolerated to heart healthy diet. 12. Code status. Full code. 13. DVT prophylaxis. The patient will be on warfarin bridged with Lovenox per Orthopedic Surgery. 14. Disposition. Inpatient with disposition per Orthopedic Surgery. Again, I suspect the patient will need subacute rehab at discharge. TIME SPENT: Time for this consultation was approximately 45 minutes, greater than half of that was spent with the patient discussing medications, past medical history, the events leading up to his arrival today, performing a physical examination. BRANDI MARTIN, ROLANDO [id number]/[facility] #: [id number] LENARD
[2017-04-28 05:27] LABS: Hematocrit 31 % (42-52); Hemoglobin 10.3 g/dl (14.0-18.0); Mean Platelet Volume 10 um3 (7.4-10.4); Platelet Count 176 10^3/ul (150-450)
[2017-04-28 05:38] LABS: INR 1.2 (0.77-1.02)
[2017-04-28 05:45] LABS: EGFR Non-African American 54.3 (>60)
[2017-04-28] MEDS: Levothyroxine TAB* 100 MCG TAB PO SCH (06:18)
[2017-04-28] MEDS: Clindamycin 600 MG IVPREMIX(* 600 MG/50 ML SDV IV SCH ×2 (06:19→14:38)
[2017-04-28] MEDS: oxyCODONE TAB* 5 MG TAB PO PRN ×2 (07:40→15:08)
[2017-04-28] MEDS: Mometasone 220 MCG MDI INH SCH (08:27)
[2017-04-28] MEDS: Torsemide TAB* 20 MG PO SCH (08:54)
[2017-04-28] MEDS: CMC:Nebivolol TAB (NF) 2.5 MG TAB PO SCH ×2 (08:55→09:02)
[2017-04-28] MEDS: Docusate CAP* 100 MG PO SCH ×2 (08:57→20:51)
[2017-04-28] MEDS: Omeprazole CAP* 20 MG PO SCH (08:57)
[2017-04-28] MEDS: Mirabegron (NF) 25 MG TAB PO SCH (09:00)
[2017-04-28] MEDS: Oxybutynin XL TAB* 5 MG PO SCH (09:00)
[2017-04-28] MEDS: Magnesium Hydroxide LIQ* 30 ML UDC PO SCH ×2 (09:03→20:50)
[2017-04-28] MEDS ORDERED: NS 0.9% 1000 ML* 1,000 ML IV SCH (10:15)
[2017-04-28] MEDS ORDERED: Spironolactone TAB* 25 MG PO SCH (12:00)
[2017-04-28] MEDS: oxyCODONE/Acetamin 5/325 MG* TAB PO PRN ×3 (12:53→23:37)
[2017-04-28] MEDS: Enoxaparin(*) 30 MG/0.3 ML SYR SUBCUT SCH (12:54)
[2017-04-28] MEDS: amLODIPine TAB* 5 MG PO SCH (12:57)
--- NOTE | 2017-04-28 14:35 | PN ---
Progress Note - Progress Note Date of Service: 04/28/17 SOAP: Subjective: 81 y/o male s/p L TKA on 04/[address] Alarcon, P/O day 1. Patient seen resting comfortably in bed. He is A&Ox3, pain 5-6/10 with help from percocet. Did PT today OOB to chair. Concerned about going home as has daughter but she works timekeeper supervisor. No fevers, chills, N/V, SOB, chest pain. Objective: Temp Pulse Resp BP Pulse Ox 98.1 F 66 18 121/54 100 04/28/17 11:37 04/28/17 11:37 04/28/17 12:53 04/28/17 11:37 04/28/17 11:37 Laboratory Results - last 24 hr 04/27/17 04/28/17 04/28/17 13:30 05:15 05:15 Hgb 10.3 L Hct 31 L Plt Count 176 MPV 10 INR (Anticoag Therapy) 1.13 H 1.20 H Sodium Potassium Chloride Carbon Dioxide Anion Gap BUN Creatinine Est GFR ( Amer) Est GFR (Non-Af Amer) BUN/Creatinine Ratio Glucose Calcium 04/28/17 05:15 Hgb Hct Plt Count MPV INR (Anticoag Therapy) Sodium 134 Potassium 5.2 H Chloride 102 Carbon Dioxide 26 Anion Gap 6 BUN 24 Creatinine 1.27 H Est GFR ( Amer) 69.8 Est GFR (Non-Af Amer) 54.3 BUN/Creatinine Ratio 18.9 Glucose 142 H Calcium 9.0 General: WN, WD, male in NAD, resting comfortably in bed. A&Ox3. Normal mood/ affect. LLE: Dressing C/D/I, able to DF/PF, wiggle toes, 2+ DP pulse, sensation intact distally. Assessment: 81 y/o S/P L TKA on 04/[address] Alarcon, P/O day 1. Hyperkalemia to 5.2, asymptomatic Plan: - Continue current pain medication regiment, ask nurse if has breakthrough pain - Continue PT/OT - Lovenox bridge to coumadin for DVT prophylaxis - Hyperkalemia - consult to hospitalist.
[2017-04-28] MEDS ORDERED: Warfarin TAB(*) 6 MG PO SCH (17:00)
[2017-04-28] MEDS: Atorvastatin* 20 MG TAB PO SCH (18:25)
--- NOTE | 2017-04-28 19:41 | PN ---
Subjective Date of Service: 04/28/17 Interval History: Patient seen and examined at bedside. Denies fever, chills, shortness of breath , chest discomfort, N/V/D. Pt states that his pain is controlled. Pt is requesting to go to rehab at discharge, discharge planning notified. Family History: Unchanged from Admission Social History: Unchanged from Admission Past Medical History: Unchanged from Admission Objective Active Medications: Acetaminophen (Tylenol Tab*) 650 mg PO Q4H PRN Reason: PAIN OR TEMPERATURE Amlodipine Besylate (Norvasc Tab*) 5 mg PO QAM [facility] Atorvastatin Calcium (Lipitor*) 20 mg PO 1900 [facility] Bisacodyl (Dulcolax Supp*) 10 mg HI DAILY PRN Reason: constipation Cyclobenzaprine HCl (Flexeril Tab*) 10 mg PO TID PRN Reason: SPASMS Diphenhydramine HCl (Benadryl Iv*) 12.5 mg IV Q6H PRN Reason: PRURITIS Docusate Sodium (Colace Cap*) 100 mg PO BID [facility] Enoxaparin Sodium (Lovenox(*)) 30 mg SUBCUT Q24H [facility] Sodium Chloride (Ns 0.9% 1000 Ml*) 1,000 mls @ 100 mls/hr IV PER RATE C[facility] Lactulose (Lactulose*) 30 ml PO Q6H PRN Reason: constipation Levothyroxine Sodium (Synthroid Tab*) 100 mcg PO 0600 [facility] Magnesium Hydroxide (Milk Of Magnesia Liq*) 30 ml PO BID [facility] Magnesium Hydroxide (Milk Of Magnesia Liq*) 30 ml PO Q6H PRN Reason: constipation Mirabegron (Myrbetriq (Nf)) 25 mg PO QAM [facility] Mometasone Furoate (Asmanex 220 Mcg Mdi *) 1 puff INH DAILY [facility] Morphine Sulfate (Morphine Inj (Syringe)*) 2 mg IV Q2H PRN Reason: PAIN Nebivolol (Bystolic Tab (Nf)) 5 mg PO QAM [facility] Omeprazole (Prilosec Cap*) 40 mg PO QAM [facility] Ondansetron HCl (Zofran Inj*) 4 mg IV Q6H PRN Reason: nausea Ondansetron HCl (Zofran Tab*) 4 mg PO Q6H PRN Reason: NAUSEA Oxybutynin Chloride (Ditropan Xl Tab*) 10 mg PO QAM [facility] Oxycodone HCl (Roxycodone Tab*) 10 mg PO Q4H PRN Reason: SEVERE PAIN Oxycodone/Acetaminophen (Percocet 5/325 Tab*) 2 tab PO Q4H PRN Reason: PAIN Oxycodone/Acetaminophen (Percocet 5/325 Tab*) 1 tab PO Q4H PRN Reason: PAIN Pharmacy Profile Note (Coumadin Daily Reminder*) 1 note FOLLOW UP 1700 [facility] Polyethylene Glycol/Electrolytes (Miralax*) 17 gm PO DAILY PRN Reason: Constipation Torsemide (Demadex*) 5 mg PO QAM [facility] Vital Signs - 8 hr 04/28/17 04/28/17 04/28/17 11:37 12:53 14:39 Temperature 98.1 F Pulse Rate 66 Respiratory 16 18 18 Rate Blood Pressure 121/54 (mmHg) O2 Sat by Pulse 100 Oximetry 04/28/17 04/28/17 04/28/17 15:08 15:29 16:00 Temperature 99.0 F Pulse Rate 70 Respiratory 16 18 Rate Blood Pressure 121/56 (mmHg) O2 Sat by Pulse 99 99 Oximetry 04/28/17 17:22 Temperature Pulse Rate Respiratory 18 Rate Blood Pressure (mmHg) O2 Sat by Pulse Oximetry Oxygen Devices in Use Now: None Appearance: NAD, sitting up in a chair Ears/Nose/Mouth/Throat: Mucous Membranes Moist Respiratory: Symmetrical Chest Expansion and Respiratory Effort, Clear to Auscultation Cardiovascular: NL Sounds; No Murmurs; No JVD, RRR Abdominal: NL Sounds; No Tenderness; No Distention Extremities: No Edema Skin: - - Dressing to left knee clean, dry and intact Neurological: Alert and Oriented x 3, NL Muscle Strength and Tone Lines/Tubes/Other Access: Clean, Dry and Intact Peripheral IV - site benign Nutrition: Taking PO's Result Diagrams: 04/28/17 05:15 04/28/17 15:50 Microbiology and Other Data: Microbiology 04/27/17 14:50 Wound Gram Stain - Final Tissue Tissue Culture - Preliminary No Growth Day 1 Anaerobic Culture - Preliminary No Growth Day 1 Assess/Plan/Problems-Billing Assessment: Mr. Braswell is an 81 yo male with PMH significant for bladder and prostate CA, CAD, hx PE/DVT, HTN, HLD, Afib, CHF, CKD stage 3, hypothyroidism, asthma, BPH, AV stenosis, and osteoarthritis who presented to the hospital for an elective left total knee replacement with Dr. Alarcon. - Patient Problems (1) Status post total left knee replacement Code(s): Z96.652 - PRESENCE OF LEFT ARTIFICIAL KNEE JOINT SNOMED Code(s): 1406067101082 Comment: - POD #1, management per orthopedics - Continue OT/PT, pain management and bowel regimen (2) Hyperkalemia Code(s): E87.5 - HYPERKALEMIA SNOMED Code(s): 97833467 Comment: - Resolved - Continue to hold spironolactone for now (3) History of coronary artery disease Code(s): Z86.79 - PERSONAL HISTORY OF OTHER DISEASES OF THE CIRCULATORY SYSTEM SNOMED Code(s): 892609573 Comment: - Denies chest pain - Continue Bystolic and statin - Resume ASA when ok with Ortho (4) HTN (hypertension) Code(s): I10 - ESSENTIAL (PRIMARY) HYPERTENSION SNOMED Code(s): 94909938 Comment: - Normotensive, SBP 110-120's - Continue amlodipine (5) Paroxysmal A-fib Code(s): I48.0 - PAROXYSMAL ATRIAL FIBRILLATION SNOMED Code(s): 959991120 Comment: - Heart rate regular - Continue Bystolic and warfarin (6) CHF (congestive heart failure) Code(s): I50.9 - HEART FAILURE, UNSPECIFIED SNOMED Code(s): 25839281 Comment: - No signs of exacerbation - Hold spironolactone d/t hyperkalemia - Continue torsemide (7) CKD (chronic kidney disease), stage III Code(s): N18.3 - CHRONIC KIDNEY DISEASE, STAGE 3 (MODERATE) SNOMED Code(s): 745167706 Comment: - Creatinine improved - Suspect Pt is at his baseline (8) HLD (hyperlipidemia) Code(s): E78.5 - HYPERLIPIDEMIA, UNSPECIFIED SNOMED Code(s): 08700046 Comment: - Continue atorvastatin (9) History of pulmonary embolism Code(s): Z86.711 - PERSONAL HISTORY OF PULMONARY EMBOLISM SNOMED Code(s): 131229721 Comment: - With Hx DVT - Continue warfarin (10) History of cancer Code(s): Z85.9 - PERSONAL HISTORY OF MALIGNANT NEOPLASM, UNSPECIFIED SNOMED Code(s): 278586671 Comment: - Bladder and Prostate - Continue to follow with PCP/Urology (11) DVT prophylaxis Code(s): VAX9750 - SNOMED Code(s): 522983740 Comment: - Lovenox bridge to warfarin (12) Full code status Code(s): Z78.9 - OTHER SPECIFIED HEALTH STATUS SNOMED Code(s): 706521484 Status and Disposition: Inpatient. Disposition per orthopedics. Suspect Pt will need TEJ at discharge. Thank you for this consultation. We will continue to follow.
--- NOTE | 2017-04-28 23:30 | OP ---
DATE OF OPERATION: 04/27/17 - ROOM #347 DATE OF : 33 SURGEON: Chen Alarcon MD GROCERY ASSOCIATE: JEAN CLAUDE Gutierrez. Mr. Reeves did help throughout the procedure with preparation of the leg, wound retraction, manipulation of the knee, and wound closure. ANESTHESIOLOGIST: Dr. Corrales. ANESTHESIA: General. PRE-OP DIAGNOSIS: Severe end-stage degenerative osteoarthritis of the left knee joint. POST-OP DIAGNOSIS: Severe end-stage degenerative osteoarthritis of the left knee joint. OPERATIVE PROCEDURE: Left total knee arthroplasty. TOURNIQUET TIME: 59 minutes. COMPLICATIONS: None. ESTIMATED BLOOD LOSS: 300 cc. SPECIMENS: Bone and cartilage from the left knee joint sent to pathology. Multiple cultures swabs and soft tissue sent for cultures and sensitivities. HARDWARE USED: This is cemented [employer] total knee arthroplasty hardware. Two packages of Simplex bone cement were used. For the femur, a size 7 left posterior stabilized Legion femoral component. For the tibia, a size 6 left tibial base plate Essie II. For the insert, a 9-mm, posterior stabilized articular insert 5/6, this was high flexion type and for the patella , a 35-mm 7.5 thickness 3- peg all poly patella. BRIEF HISTORY/INDICATION: Mr. Braswell is an 81-year-old gentleman with years of increasingly severe left knee pain. Radiographs showed [id number] arthritis. He had failed conservative treatment with anti-inflammatories, pain medications, intraarticular injection, and physical therapy. He elected to undergo a total knee arthroplasty due to continued pain and decreased quality of life. Informed consent was obtained from the patient. He understood the risks of surgery included but were not limited to bleeding, infection, damage to nearby structures, continued pain, need for further surgery, intraoperative fracture, nerve palsy, hardware failure or loosening, knee stiffness, loss of motion, stroke, heart attack, blood clot, and . He wished to proceed. INTRAOPERATIVE FINDINGS: Intraoperatively, the patient was noted to have severe end-stage arthritis, which was tricompartmental. There was complete loss of cartilage in the medial and patellofemoral compartments. He was noted to have severe contracture with 25 degrees flexion contracture to start the case , flexion of 120 degrees. Intraoperatively, we did obtain full extension, although significant tightness in the hamstring was noted, flexion to 130 degrees was obtained. DESCRIPTION OF PROCEDURE: Mr. Braswell was identified in the preanesthesia unit. His left lower extremity was marked as the correct operative side. Informed consent was signed and placed in the chart. The patient was taken to the operating room and placed under general anesthesia. A Apple catheter was placed. Tourniquet was placed on the left thigh. Left lower extremity was prepped and draped in the usual sterile fashion. Preop time-out was made to correctly identify the patient's side and site. Appropriate perioperative antibiotics were given within 1 hour of incision. Tourniquet was inflated and total tourniquet time for this procedure was 59 minutes. A midline incision was made with a 10 blade. This was carried down to the extensor mechanism. A new 10 blade was used to make a standard medial parapatellar arthrotomy. The patella was subluxed laterally. Electrocautery was used to subperiosteally elevate the soft tissue off the superomedial tibia to the mid sagittal plane. The knee was flexed up. A drill was used to enter the distal femur. Intramedullary distal femoral cutting guide was pinned on the distal femur. Oscillating saw was used to make the distal femoral cut. External rotation guide was pinned on the distal femur. Distal femur was sized to a size 7. Size 7 multi-cutting jig was pinned on the distal femur. Oscillating saw was used to make the appropriate 4 chamfer cuts. The PCL was completely released and the tibia was subluxed anteriorly. Extramedullary tibial cutting guide was pinned on the proximal tibia. Oscillating saw was used to make the proximal tibial cut perpendicular to the mechanical axis of the tibia. The bone was carefully removed. The knee was brought out into full extension. The spacer block fit well with the knee in full extension. Medial and lateral ligaments were well balanced. Flexion and extension gaps were well balanced. The knee was flexed up. Lamina treating plant pumper was placed both medially and laterally. Any remaining meniscus was carefully removed using electrocautery. Curved osteotome was used to remove posterior osteophytes. Tibial tray and drop blake were placed and this confirmed the satisfactory tibial cut. A size 7 left femoral trial was impacted on to the distal femur and had good fit. The box for the posterior stabilized implant was prepared using a reamer and box cut osteotome. Size 6 tibial tray trial with a 9-mm insert trial was placed. The knee was taken through a range of motion. The knee had full extension, although significant hamstring tightness was noted, 130 degrees of flexion with satisfactory patellofemoral tracking. The patella was everted. 8 mm of patellar bone and cartilage was carefully removed using an oscillating saw. The patella was sized to a size 35. Three peg holes were drilled through the size 35 guide. A trial 35 patella with 7.5 thickness was chosen and placed. The knee was taken through a range of motion and had satisfactory patellofemoral tracking. All trials were carefully removed. The tibia was subluxed anteriorly and sized to a size 6. Proximal tibia was prepared using a size 6 keel punch. All bony cut surfaces were copiously irrigated with sterile saline and dried. The final implants were cemented into place starting with the tibia followed by the femur and last the patella. A 9-mm insert trial was placed while the knee was brought out into full extension. Tourniquet was turned down at 59 minutes. The knee was copiously irrigated with sterile saline. Electrocautery was used to obtain meticulous hemostasis. Once the cement had fully cured, the insert trial was removed. Final insert chosen was a posterior stabilized, size 5/6 9-mm insert, which was the high flexion type. This was locked into position on the tibial tray. Stability of the insert was checked and rechecked and noted to be stable. The knee was copiously irrigated with sterile saline. Extensor mechanism was closed using interrupted #1 Vicryl over a medium Hemovac drain. The rest of the incision was closed in a layered fashion using 0 and 2-0 Vicryl. Skin was closed using running 3-0 nylon suture. Sterile Xeroform, 4x4s, and Webril were used to cover the incision. Garth wrap and cold pack were placed over this. The patient's anesthesia was reversed without difficulty. He was taken to the PACU in stable condition. Intended weightbearing will be weightbearing as tolerated. Intended DVT prophylaxis will be Coumadin with a Lovenox bridge. [id number]/[facility] #: [id number] LENARD
[2017-04-29 05:20] LABS: Hematocrit 29 % (42-52); Hemoglobin 9.7 g/dl (14.0-18.0); Mean Platelet Volume 10 um3 (7.4-10.4); Platelet Count 171 10^3/ul (150-450)
[2017-04-29 05:35] LABS: EGFR Non-African American 59.1 (>60); INR 1.85 (0.77-1.02)
[2017-04-29] MEDS: Levothyroxine TAB* 100 MCG TAB PO SCH (05:57)
[2017-04-29] MEDS: oxyCODONE/Acetamin 5/325 MG* TAB PO PRN ×4 (05:58→23:47)
--- NOTE | 2017-04-29 08:45 | PN ---
Progress Note - Progress Note Date of Service: 04/29/17 SOAP: Subjective: []Patient seen at bedside. He feels well. LLE pain is well controlled. Denies CP, SOB, nausea or dizziness. Objective: [] Vital Signs Temp 97.7 F 04/29/17 03:27 Pulse 78 04/29/17 03:27 Resp 18 04/29/17 07:38 BP 116/56 04/29/17 03:27 Pulse Ox 91 04/29/17 03:27 Intake & Output 04/28/17 04/29/17 04/29/17 18:59 06:59 18:59 Intake Total 1405 500 Output Total 100 700 Balance 1305 -200 Intake: IV Fluids 980 LR 980 Oral 425 500 Output: Urine 100 700 Other: Estimated Void Medium Small # Bowel Movements 0 Estimated Stool Amount Small # Voids 2 Laboratory Last Values Hgb 9.7 g/dl (14.0-18.0) L 04/29/17 04:51 Hct 29 % (42-52) L 04/29/17 04:51 Plt Count 171 10^3/ul (150-450) 04/29/17 04:51 MPV 10 um3 (7.4-10.4) 04/29/17 04:51 INR (Anticoag Therapy) 1.85 (0.77-1.02) H 04/29/17 04:51 Sodium 134 mmol/L (133-145) 04/29/17 04:51 Potassium 4.2 mmol/L (3.5-5.0) 04/29/17 04:51 Chloride 102 mmol/L (101-111) 04/29/17 04:51 Carbon Dioxide 25 mmol/L (22-32) 04/29/17 04:51 Anion Gap 7 mmol/L (2-11) 04/29/17 04:51 BUN 26 mg/dL (6-24) H 04/29/17 04:51 Creatinine 1.18 mg/dL (0.67-1.17) H 04/29/17 04:51 Est GFR ( Amer) 76.0 (>60) 04/29/17 04:51 Est GFR (Non-Af Amer) 59.1 (>60) 04/29/17 04:51 BUN/Creatinine Ratio 22.0 (8-20) H 04/29/17 04:51 Glucose 111 mg/dL (70-100) H 04/29/17 04:51 Calcium 8.5 mg/dL (8.6-10.3) L 04/29/17 04:51 General: Well appearing, NAD LLE: Dressing changed. Incision CDI. DF/PF intact. DP 2+ BL LE: Calves supple and nontender without erythema, edema or palpable cords. Assessment: []POD 2 s/p left total knee arthroplasty Plan: []- WBAT - Continue PT/OT - Lovenox bridge to coumadin for DVT prophylaxis. Coumadin 2 mg today - Hyperkalemia resolved - DC tomorrow
[2017-04-29] MEDS: Mometasone 220 MCG MDI INH SCH (08:52)
[2017-04-29] MEDS: oxyCODONE TAB* 5 MG TAB PO PRN (09:18)
[2017-04-29] MEDS: Docusate CAP* 100 MG PO SCH ×2 (09:19→20:16)
[2017-04-29] MEDS: Oxybutynin XL TAB* 5 MG PO SCH (09:19)
[2017-04-29] MEDS: Omeprazole CAP* 20 MG PO SCH (09:19)
[2017-04-29] MEDS: Magnesium Hydroxide LIQ* 30 ML UDC PO SCH ×2 (09:20→20:13)
[2017-04-29] MEDS: amLODIPine TAB* 5 MG PO SCH (09:20)
[2017-04-29] MEDS: Torsemide TAB* 20 MG PO SCH (09:20)
[2017-04-29] MEDS: CMC:Nebivolol TAB (NF) 2.5 MG TAB PO SCH (09:20)
[2017-04-29] MEDS: Mirabegron (NF) 25 MG TAB PO SCH (09:20)
[2017-04-29] MEDS: Enoxaparin(*) 30 MG/0.3 ML SYR SUBCUT SCH (12:50)
[2017-04-29] MEDS ORDERED: Warfarin TAB(*) 2 MG PO ONE (17:00)
[2017-04-29] MEDS: Atorvastatin* 20 MG TAB PO SCH (18:36)
--- NOTE | 2017-04-29 20:58 | PN ---
Subjective Date of Service: 04/29/17 Interval History: Patient seen and examined at bedside. Denies fever, chills, shortness of breath , chest discomfort, N/V/D. Pt states that he continues to have pain, but feels that the Percocet take the edge off. Family History: Unchanged from Admission Social History: Unchanged from Admission Past Medical History: Unchanged from Admission Objective Active Medications: Acetaminophen (Tylenol Tab*) 650 mg PO Q4H PRN Reason: PAIN OR TEMPERATURE Amlodipine Besylate (Norvasc Tab*) 5 mg PO QAM [facility] Atorvastatin Calcium (Lipitor*) 20 mg PO 1900 [facility] Bisacodyl (Dulcolax Supp*) 10 mg SC DAILY PRN Reason: constipation Cyclobenzaprine HCl (Flexeril Tab*) 10 mg PO TID PRN Reason: SPASMS Diphenhydramine HCl (Benadryl Iv*) 12.5 mg IV Q6H PRN Reason: PRURITIS Docusate Sodium (Colace Cap*) 100 mg PO BID [facility] Enoxaparin Sodium (Lovenox(*)) [address] [facility] Sodium Chloride (Ns 0.9% 1000 Ml*) 1,000 mls @ 100 mls/hr IV PER RATE [facility] Lactulose (Lactulose*) 30 ml PO Q6H PRN Reason: constipation Levothyroxine Sodium (Synthroid Tab*) 100 mcg PO 0600 [facility] Magnesium Hydroxide (Milk Of Magnesia Liq*) 30 ml PO BID [facility] Magnesium Hydroxide (Milk Of Magnesia Liq*) 30 ml PO Q6H PRN Reason: constipation Mirabegron (Myrbetriq (Nf)) [address] [facility] Mometasone Furoate (Asmanex 220 Mcg Mdi *) 1 puff INH DAILY [facility] Morphine Sulfate (Morphine Inj (Syringe)*) 2 mg IV Q2H PRN Reason: PAIN Nebivolol (Bystolic Tab (Nf)) 5 mg PO QAM [facility] Omeprazole (Prilosec Cap*) 40 mg PO QAM [facility] Ondansetron HCl (Zofran Inj*) 4 mg IV Q6H PRN Reason: nausea Ondansetron HCl (Zofran Tab*) 4 mg PO Q6H PRN Reason: NAUSEA Oxybutynin Chloride (Ditropan Xl Tab*) [address] [facility] Oxycodone HCl (Roxycodone Tab*) 10 mg PO Q4H PRN Reason: SEVERE PAIN Oxycodone/Acetaminophen (Percocet 5/325 Tab*) 2 tab PO Q4H PRN Reason: PAIN Oxycodone/Acetaminophen (Percocet 5/325 Tab*) 1 tab PO Q4H PRN Reason: PAIN Pharmacy Profile Note (Coumadin Daily Reminder*) 1 note FOLLOW UP 1700 [facility] Polyethylene Glycol/Electrolytes (Miralax*) 17 gm PO DAILY PRN Reason: Constipation Torsemide (Demadex*) [address] [facility] Vital Signs - 8 hr 04/29/17 04/29/17 04/29/17 16:00 16:22 18:36 Temperature 97.3 F Pulse Rate 66 Respiratory 14 18 18 Rate Blood Pressure 115/51 (mmHg) O2 Sat by Pulse 93 Oximetry 04/29/17 19:56 Temperature 97.9 F Pulse Rate 70 Respiratory 14 Rate Blood Pressure 106/45 (mmHg) O2 Sat by Pulse 95 Oximetry Oxygen Devices in Use Now: None Appearance: NAD, sitting up in a chair Ears/Nose/Mouth/Throat: Mucous Membranes Moist Respiratory: Symmetrical Chest Expansion and Respiratory Effort, Clear to Auscultation Cardiovascular: NL Sounds; No Murmurs; No JVD, RRR Abdominal: NL Sounds; No Tenderness; No Distention Extremities: - - Mild edema to left LE Skin: - - Dressing to left LE clean, dry and intact Neurological: Alert and Oriented x 3, NL Muscle Strength and Tone Lines/Tubes/Other Access: Clean, Dry and Intact Peripheral IV - site benign Nutrition: Taking PO's Result Diagrams: 04/29/17 04:51 04/29/17 04:51 Microbiology and Other Data: Microbiology 04/27/17 14:50 Wound Gram Stain - Final Tissue Tissue Culture - Preliminary No Growth Day 1 Anaerobic Culture - Preliminary No Growth Day 1 Assess/Plan/Problems-Billing Assessment: Mr. Braswell is an 81 yo male with PMH significant for bladder and prostate CA, CAD, hx PE/DVT, HTN, HLD, Afib, CHF, CKD stage 3, hypothyroidism, asthma, BPH, AV stenosis, and osteoarthritis who presented to the hospital for an elective left total knee replacement with Dr. Alarcon. - Patient Problems (1) Status post total left knee replacement Code(s): Z96.652 - PRESENCE OF LEFT ARTIFICIAL KNEE JOINT SNOMED Code(s): 6303207382123 Comment: - POD #2, management per orthopedics - Continue OT/PT, pain management and bowel regimen (2) Hyperkalemia Code(s): E87.5 - HYPERKALEMIA SNOMED Code(s): 31722211 Comment: - Resolved - Continue to hold spironolactone for now (3) History of coronary artery disease Code(s): Z86.79 - PERSONAL HISTORY OF OTHER DISEASES OF THE CIRCULATORY SYSTEM SNOMED Code(s): 140620927 Comment: - Denies chest pain - Continue Bystolic and statin - Resume ASA when ok with Ortho (4) HTN (hypertension) Code(s): I10 - ESSENTIAL (PRIMARY) HYPERTENSION SNOMED Code(s): 27886425 Comment: - Normotensive, SBP 100-120's - Continue amlodipine - Continue to hold spironolactone for now (5) Paroxysmal A-fib Code(s): I48.0 - PAROXYSMAL ATRIAL FIBRILLATION SNOMED Code(s): 418725696 Comment: - Heart rate regular - Continue Bystolic and warfarin (6) CHF (congestive heart failure) Code(s): I50.9 - HEART FAILURE, UNSPECIFIED SNOMED Code(s): 44798863 Comment: - No signs of exacerbation - Hold spironolactone d/t hyperkalemia - Continue torsemide (7) CKD (chronic kidney disease), stage III Code(s): N18.3 - CHRONIC KIDNEY DISEASE, STAGE 3 (MODERATE) SNOMED Code(s): 553631379 Comment: - Creatinine improved - Suspect Pt is at his baseline (8) HLD (hyperlipidemia) Code(s): E78.5 - HYPERLIPIDEMIA, UNSPECIFIED SNOMED Code(s): 75928413 Comment: - Continue atorvastatin (9) History of pulmonary embolism Code(s): Z86.711 - PERSONAL HISTORY OF PULMONARY EMBOLISM SNOMED Code(s): 455521780 Comment: - With Hx DVT - Continue warfarin (10) History of cancer Code(s): Z85.9 - PERSONAL HISTORY OF MALIGNANT NEOPLASM, UNSPECIFIED SNOMED Code(s): 542917563 Comment: - Bladder and Prostate - Continue to follow with PCP/Urology (11) DVT prophylaxis Code(s): IXJ6341 - SNOMED Code(s): 212298814 Comment: - Lovenox bridge to warfarin (12) Full code status Code(s): Z78.9 - OTHER SPECIFIED HEALTH STATUS SNOMED Code(s): 797883867 Status and Disposition: Inpatient. Disposition per orthopedics. Plan for discharge to [facility] in the AM. Thank you for this consultation. We will continue to follow.
[2017-04-30 05:50] LABS: Hematocrit 28 % (42-52); Hemoglobin 9.3 g/dl (14.0-18.0); Mean Platelet Volume 10 um3 (7.4-10.4); Platelet Count 164 10^3/ul (150-450)
[2017-04-30 06:03] LABS: INR 1.81 (0.77-1.02)
[2017-04-30] MEDS: Levothyroxine TAB* 100 MCG TAB PO SCH (06:05)
--- NOTE | 2017-04-30 07:43 | PN ---
Progress Note - Progress Note Date of Service: 04/30/17 SOAP: Subjective: Pt. is alert, pain controlled. Objective: LLE - dressing c/d/i. distally nvi. Vital Signs: Temp Pulse Resp BP Pulse Ox 98.0 F 77 18 134/53 96 04/30/17 03:40 04/30/17 03:40 04/30/17 03:40 04/30/17 03:40 04/30/17 04:47 Laboratory Results - last 24 hr 04/30/17 04/30/17 05:19 05:19 Hgb 9.3 L Hct 28 L Plt Count 164 MPV 10 INR (Anticoag Therapy) 1.81 H Assessment: 81 yo M pod 3 s/p LTKA Plan: wbat lle pt/ot lovenox today, 6 mg coumadin tonight plan d/c to [facility] today
[2017-04-30] MEDS: oxyCODONE/Acetamin 5/325 MG* TAB PO PRN ×2 (07:58→12:12)
[2017-04-30] MEDS: Mometasone 220 MCG MDI INH SCH (08:39)
[2017-04-30] MEDS: Magnesium Hydroxide LIQ* 30 ML UDC PO SCH (09:08)
[2017-04-30] MEDS: Oxybutynin XL TAB* 5 MG PO SCH (09:26)
[2017-04-30] MEDS: CMC:Nebivolol TAB (NF) 2.5 MG TAB PO SCH (09:26)
[2017-04-30] MEDS: Omeprazole CAP* 20 MG PO SCH (09:26)
[2017-04-30] MEDS: amLODIPine TAB* 5 MG PO SCH (09:27)
[2017-04-30] MEDS: Docusate CAP* 100 MG PO SCH (09:27)
[2017-04-30] MEDS: Torsemide TAB* 20 MG PO SCH (09:27)
[2017-04-30] MEDS: Mirabegron (NF) 25 MG TAB PO SCH (09:30)
[2017-04-30] MEDS: Enoxaparin(*) 30 MG/0.3 ML SYR SUBCUT SCH (12:13)
--- NOTE | 2017-04-30 12:38 | DS ---
DATE OF ADMISSION: 04/27/2017. DATE OF DISCHARGE: 04/30/2017. ATTENDING SURGEON: Dr. Chen Alarcon* (dictated by JEAN CLAUDE Nino). CHIEF COMPLAINT: 1. Left knee pain. 2. History of prostate cancer. 3. History of DVT/PE. 4. Coronary artery disease. 5. Hypertension. 6. Elevated cholesterol. 7. Atrial fibrillation. 8. Congestive heart failure. 9. Stage 3 kidney disease. 10. Hypothyroidism. 11. Asthma. 12. Bladder cancer. DISCHARGE DIAGNOSES: 1. Status post left total knee arthroplasty. 2. History of prostate cancer. 3. History of DVT/PE. 4. Coronary artery disease. 5. Hypertension. 6. Elevated cholesterol. 7. Atrial fibrillation. 8. Congestive heart failure. 9. Stage 3 kidney disease. 10. Hypothyroidism. 11. Asthma. 12. Bladder cancer. PROCEDURE: Left total knee arthroplasty, 04/27/2017. Uncomplicated. Estimated blood loss 300 cc. CONSULTATIONS: 1. Physical Therapy. 2. Occupational Therapy. 3. Hospitalist Medicine. BRIEF HISTORY: Mr. 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 Chen Alarcon. HOSPITAL COURSE: The patient was admitted to [facility] on 2017 where he underwent an uncomplicated left total knee arthroplasty. Postoperatively, the patient recovered on the Surgical Short Stay Unit. His Apple was removed on postoperative day two and he was voiding on his own without difficulty. He was restarted on his home medications and advanced to a regular diet. His pain was controlled with p.o. Percocet and his labs and vital signs remained stable. He was able to bear weight as tolerated in the left lower extremities and worked well with Physical Therapy and Occupational Therapy; however, was deemed appropriate for rehabilitation services postoperatively. His DVT prophylaxis is with Lovenox and Coumadin until he reaches a therapeutic INR. By postoperative day three, he was orthopedically and medically stable for discharge to go home with home services. PHYSICAL EXAMINATION: General: Well-appearing, no acute distress, alert and oriented. Vital Signs: Temperature 98.6, pulse rate 77, respiratory rate 17, oxygen saturation 94 percent on room air, blood pressure 112/47. Extremities: Examination of the left lower extremity shows that the incision is clean, dry and intact with no signs of erythema or ecchymosis around the suture site. Moderate edema around the knee area, redressed with dry gauze and an Garth wrap. The patient tolerated it well. Negative Homans sign bilaterally. Posterior tibial pulses 2+ bilaterally. Positive dorsiflexion and plantarflexion. Sensation to light touch grossly intact. LABORATORY DATA ON THE DATE OF DISCHARGE: H and H of 9.3 and 28; INR 1.81. IMAGING STUDIES: Postoperative x-rays obtained on 04/27/2017 at 1700 show a left total knee replacement in proper alignment. DISCHARGE MEDICATIONS: 1. Tylenol 650 mg p.o. q.4 to 6 hours prn for pain or fever, not to exceed more than 4,000 mg a day prn. 2. Norvasc 5 mg p.o. q.a.m. 3. Cyclobenzaprine 10 mg p.o. t.i.d. prn muscle spasms. 4. Colace 100 mg p.o. b.i.d. 5. Synthroid 100 mcg p.o. daily. 6. Mirabegron 25 mg p.o. q.a.m. 7. Bystolic 5 mg p.o. q.a.m. 8. Prilosec 40 mg p.o. q.a.m. 9. Oxybutynin 10 mg p.o. q.a.m. 10. Percocet 5/325 one to two tablets every 4 to 6 hours as needed for pain. 11. Pravachol 80 mg p.o. daily at 1900. 12. Torsemide 5 mg p.o. q.a.m. 13. Coumadin 2 mg tablets one to three tablets p.o. as directed by physicians at 5:00 p.m. with INR checks every Wednesday and . 14. Aspirin 81 mg p.o. daily. 15. Vitamin D 500 international units p.o. at 1900. 16. Coenzyme Q10 200 mg p.o. daily. 17. Multivitamin one tablet daily. 18. Acidophilus one tablet p.o. daily. 19. Aldactone 25 mg p.o. daily at noon. CONDITION ON DISCHARGE: Stable. DISCHARGE INSTRUCTIONS: Mr. Braswell is a very pleasant, 81-year-old gentleman, postoperative day three, status post a left total knee arthroplasty which was uncomplicated. He is orthopedically and medically stable for discharge to [facility]. His labs and vital signs are stable. He will restart him home medications. He will take 2 mg of Coumadin on the and with 4 mg on the and repeat INR check on May 03. He was on Coumadin postoperatively due to atrial fibrillation and history of DVT and PE. He will take Percocet as needed for pain control and Colace up to three times a day as needed for constipation. He will follow-up with Dr. Alarcon in approximately ten days for incision check and suture removal. He was instructed to go immediately to the ER should he develop chest pain or shortness of breath. Should he develop fever , increasing pain or redness, he is to call the office immediately. JEAN CLAUDE NINO [id number]/[facility] #: [id number] LENARD
[2017-04-30 12:46] VITALS: BP 98/62
[2017-04-30] MEDS ORDERED: Warfarin TAB(*) 6 MG PO SCH (17:00)
== END 2017-04-30 12:50 | DRG 470 ==
LOC: AA 11:53 → SSU 19:44
PROVIDERS: ADMIT Orthopaedic Surgery Adult Reconstructive Orthopaedic Surgery; ATTEND Internal Medicine
PROC: 0SRD0J9 Replacement of Left Knee Joint with Synthetic Substitute, Cemented, Open Approach (ICD-10-PCS; principal; 2017-04-27 14:15)
DX: M17.12 Unilateral primary osteoarthritis, left knee (principal); E87.5 Hyperkalemia; I48.0 Paroxysmal atrial fibrillation; I50.9 Heart failure, unspecified; I11.0 Hypertensive heart disease with heart failure; I25.10 Atherosclerotic heart disease of native coronary artery without angina pectoris; I12.9 Hypertensive chronic kidney disease with stage 1 through stage 4 chronic kidney disease, or unspecified chronic kidney disease; N18.3 Chronic kidney disease, stage 3 (moderate); E03.9 Hypothyroidism, unspecified; J45.909 Unspecified asthma, uncomplicated; N40.0 Benign prostatic hyperplasia without lower urinary tract symptoms; I35.0 Nonrheumatic aortic (valve) stenosis; E78.00 Pure hypercholesterolemia, unspecified; K21.9 Gastro-esophageal reflux disease without esophagitis; Z85.51 Personal history of malignant neoplasm of bladder; Z79.82 Long term (current) use of aspirin; Z85.46 Personal history of malignant neoplasm of prostate; Z86.718 Personal history of other venous thrombosis and embolism; Z86.711 Personal history of pulmonary embolism; Z79.01 Long term (current) use of anticoagulants; Z95.1 Presence of aortocoronary bypass graft; Z88.0 Allergy status to penicillin; Z82.49 Family history of ischemic heart disease and other diseases of the circulatory system; Z80.9 Family history of malignant neoplasm, unspecified; Z86.14 Personal history of Methicillin resistant Staphylococcus aureus infection; Z87.442 Personal history of urinary calculi
CPT/HCPCS: 36415; 80048; 84132; 85014; 85018; 85049; 85610; 87070; 87073; 87205; A9270-GY; C1776; J1100; J1170; J1650; J2250; J2405; J2704; J3010; J7614

== ENCOUNTER 2017-05-24 16:18 | Emergency (ER) | payer MEDICARE ==
--- OUTSIDE RECORDS SUMMARY | 2017-05-24 17:00 | XMS REPORT ---
:1935 External Reference #:[id number] Author [facility] Ide[facility] Device Address [address] [address] Phone [phone] Care Team Providers Name Role Phone Claire Paniagua MD Primary Care Physician Unavailable Payers Type Date Identification Numbers Payment Provider Subscriber Commercial Policy Number: [id number] [employer]/Tod[employer] Options Claudine Menchaca PayID: [id number] [address] [address] Attn: [place] [address] Medigap Part B Effective: 1999 Policy Number: Medicare Claudine Menchaca [id number] Expires: 2017 PayID: [id number] [address] [place] [address] Problems Date Description Provider Status Onset: 06/06/2014 [...] Active Tablets 5-325mg 90tabs 1-2 tabs M17.0 Chen2017 by mouth Dorian, q8 as M.D. needed [...] Depomedrol Administered Injection Pérez 40MG 013 Veigel, MIoanaD. Vital Signs Date Vital Result Comment 05/10/2017 Height 70 inches 5'10" Weight 205.00 lb Heart Rate 68 /min BP Systolic 122 mmHg BP Diastolic 60 mmHg Respiratory Rate 18 /min Body Temperature 98.0 F Pain Level 0 BMI (Body Mass Index) 29.4 kg/m2 04/16/2017 Height 70 inches 5'10" Weight 205.00 [...] Test Date Test Result H/L Range Note CBC Auto Diff 04/16/2017 White Blood Count 9.0 10^3/uL 3.5-10.8 Red Blood Count 3.77 10^6/uL Low 4.0-5.4 Hemoglobin 12.4 g/dL Low 14.0-18.0 Hematocrit 36 % Low 42-52 Mean Corpuscular Volume 96 fL High 80-94 Mean Corpuscular Hemoglobin 33 pg High 27-31 Mean Corpuscular HGB Conc 34 g/dL 31-36 Red Cell Distribution Width 15 % 10.5-15 Platelet Count 453 10^3/uL High 150-450 Mean Platelet Volume 9 um3 7.4-10.4 Abs Neutrophils 5.9 10^3/uL 1.5-7.7 Abs Lymphocytes 2.1 10^3/uL 1.0-4.8 Abs Monocytes 0.8 10^3/uL 0-0.8 Abs Eosinophils 0.2 10^3/uL 0-0.6 Abs Basophils 0.1 10^3/uL 0-0.2 Abs Nucleated RBC 0 10^3/uL Granulocyte % 65.0 % 38-83 Lymphocyte % 23.3 % Low 25-47 Monocyte % 9.0 % 1-9 Eosinophil % 1.8 % 0-6 Basophil % 0.9 % 0-2 Nucleated Red Blood Cells % 0.1 Urinalysis Profile 04/16/2017 Urine Color Dyan Urine Appearance Cloudy Urine Specific [place] 1.031 High 1.010-1.030 Urine pH 5.0 5-9 Urine Urobilinogen Negative Negative Urine Ketones Negative Negative Urine Protein 3+(>=500 mg/dL) Negative Urine Leukocytes 1+ Negative Urine Blood 2+ Negative Urine Nitrite Negative Negative Urine Bilirubin Negative Negative Urine Glucose Negative Negative Urine White Blood Cell 3+(>20/hpf) Absent Urine Red Blood Cell 3+(>10/hpf) Absent Urine Bacteria Absent Absent Urine Squamous Epithelial Cell Present Absent Urine Hyaline Casts Present Absent Type & Screen 04/16/2017 Patient Blood Type A Positive Antibody Screen NEGATIVE Inr/Protime 04/16/2017 Inr 2.24 High 0.77-1.02 Laboratory test finding 04/16/2017 Partial Thrombo Time 33.5 seconds 26.0 -36.3 PTT Comp Metabolic Panel 04/16/2017 Sodium 135 mmol/L 133-145 Potassium 4.9 mmol/L 3.5-5.0 Chloride 97 mmol/L Low 101-111 Co2 Carbon Dioxide 26 mmol/L 22-32 Anion Gap 12 mmol/L High 2-11 Glucose 90 mg/dL 70-100 Blood Urea Nitrogen 32 mg/dL High 6-24 Creatinine 1.65 mg/dL High 0.67-1.17 BUN/Creatinine Ratio 19.4 8-20 Calcium 9.5 mg/dL 8.6-10.3 Total Protein 7.0 g/dL 6.4-8.9 Albumin 3.5 g/dL 3.2-5.2 Globulin 3.5 g/dL 2-4 Albumin/Globulin Ratio 1.0 1-3 Total Bilirubin 0.60 mg/dL 0.2-1.0 Alkaline Phosphatase 76 U/L 34-104 Alt 26 U/L 7-52 Ast 29 U/L 13-39 Egfr Non- 40.1 >60 Egfr 51.6 >60 1 Urine Culture And 04/16/2017 Urine Culture SEE RESULT BELOW 2 Sensitivities Xray 11/21/2012 Knee 3 Views Bilateral <pending> 1 Because ethnic data is not always readily available, this report includes an eGFR for both -Americans and non- Americans. The National Kidney Disease Education Program (NKDEP) does not endorse the use of the MDRD equation for patients that are not between the ages of 18 and 70, are , have extremes of body size, muscle mass, or nutritional status, or are non- or non-. According to the National Kidney Foundation, irrespective of diagnosis, the stage of the disease is based on the level of kidney function: Stage Description GFR(mL/min/1.73 m(2)) 1 Kidney damage with normal or decreased GFR 90 2 Kidney damage with mild decrease in GFR 60-89 3 Moderate decrease in GFR 30-59 4 Severe decrease in GFR 15-29 5 Kidney failure <15 (or dialysis) 2 SEE RESULT BELOW Name: CLAUDINE MENCHACA : [address]: Chen Alarcon MD Acct: [id number] Unit: [id number] AGE: 81 Location: [facility] Re04/16/17 SEX: M Status: REG REF SPEC: [id number] MANUELA: 04/16/17-4857 [facility] DR: Chen Alarcon MD REQ: [id number] RECD: 04/16/176597 [facility] FAX#: [id number] STATUS: FRANSISCA VILLANUEVA DR: Claire Paniagua MD _ SOURCE: URINE SPDESC: ORDERED: Urine Culture QUERIES: Urine Source: Random Procedure Result Reported Site Urine Culture Final 04/17/17- 1244 ML No Growth (<1,000 CFU/mL) * ML - MAIN LAB (PSC1) . END OF REPORT * ML=Testing performed at Main Lab DEPARTMENT OF PATHOLOGY, [address] [place] [address] Lyle Huerta M.D. Director [facility] # [id number] Procedures Date CPT Code Description Status 04/27/2017 02302 TKR Total Knee Replacement Completed 04/27/2017 92518 TKR Total Knee Replacement Completed 03/16/2017 Inject/Drain Joint/Bursa Major Completed 12/07/2016 Inject/Drain Joint/Bursa Major Completed 09/07/2016 Inject/Drain Joint/Bursa Major Completed 08/18/2016 Inject/Drain Joint/Bursa Major Completed 06/03/2016 Inject/Drain Joint/Bursa Major Completed 01/06/2016 Inject/Drain Joint/Bursa Major Completed 11/14/2015 63091 Xray Knee 3 Views Completed 11/14/2015 Inject/Drain Joint/Bursa Major Completed 11/07/2013 Inject/Drain Joint/Bursa Major Completed 10/03/2013 61959 Rad Exam; Knee Comp Completed 10/03/2013 08124 Xray Knee 3 Views Completed 10/03/2013 35398 Xray Knee 3 Views Completed 10/03/2013 Inject/Drain Joint/Bursa Major Completed 01/10/2013 Inject/Drain Joint/Bursa Major Completed 01/03/2013 Inject/Drain Joint/Bursa Major Completed 12/27/2012 Inject/Drain Joint/Bursa Major Completed 11/21/2012 24764 Xray Knee 3 Views Completed 11/21/2012 99277 Xray Knee 3 Views Completed 11/21/2012 Inject/Drain Joint/Bursa Major Completed Encounters Type Date Location Provider CPT E/M Dx Office Visit 04/02/2017 11:00a [facility] Alarcon M.D. 87053 M17.0 [facility] M25.562 M25.561 M25.461 M25.462 Office Visit 09/07/2016 10:15a [facility] [place] [address] M75.122 [facility] M75.121 Office Visit 08/18/2016 1:45p [facility] [place] [address] M17.0 [facility] Office Visit 06/03/2016 9:30a [facility] [place] [address] M17.11 [facility] Office Visit 11/14/2015 11:00a [facility] [place] [address] M17.0 [facility] Office Visit 06/13/2015 10:00a [facility] [place], [address] [facility]90.[facility] 09/04/2014 11:00a [place] Breanne Reyes M.D. 49517 356.4 [facility] Office Visit 06/06/2014 9:00a [place] [facility] Bre[facility] Reyes M.D. 68892 356.4 Services [facility] 333.1 Office Visit 11/07/2013 10:15a [facility] [place] Alvarenga 93780 715.16 [facility] Office Visit 10/03/2013 9:45a [facility] [place]va[place] 78479 715.16 [facility]15.18 Office Visit 02/14/2013 9:00a [facility] Pérez Taylor M.D. 14454 724.2 At [place] 715.16 Office Visit 12/22/2012 2:30p [facility] Pérez Taylor M.D. 46145 715.16 At [place] Office Visit 11/21/2012 2:30p [facility] Pérez Taylor M.D. 73432 715.18 At [place] 715.16 Office Visit 09/15/2012 2:00p [facility] Rooney M.D. 60344 727.62 [place] Office Visit 08/18/2012 3:00p [facility] Pérez Taylor M.D. 01593 719.41 [facility] [place] Plan of Care Future Appointment(s):05/28/2017 1:45 pm - Chen Alarcon M.D. at [facility]
[2017-05-24 19:00] LABS: ABS Basophils 0.2 10^3/ul (0-0.2); ABS Eosinophils 0.4 10^3/ul (0-0.6); ABS Lymphocytes 1.7 10^3/ul (1.0-4.8); ABS Neutrophils 11.2 10^3/ul (1.5-7.7); ABS Nucleated RBC 0 10^3/ul; Eosinophil % 2.9 % (0-6); Hematocrit 34 % (42-52); Hemoglobin 11.2 g/dl (14.0-18.0); Lymphocyte % 11.8 % (25-47); Mean Corpuscular HGB Conc 33 g/dl (31-36); Mean Corpuscular Hemoglobin 31 pg (27-31); Mean Corpuscular Volume 96 fL (80-94); Mean Platelet Volume 10 um3 (7.4-10.4); Nucleated Red Blood Cells % 0; Platelet Count 205 10^3/ul (150-450); Red Blood Count 3.56 10^6/ul (4.0-5.4); Red Cell Distribution Width 16 % (10.5-15); White Blood Count 14.5 10^3/ul (3.5-10.8)
[2017-05-24 19:14] LABS: EGFR Non-African American 46.2 (>60)
[2017-05-24] MEDS ORDERED: metroNIDAZOLE TAB* 250 MG PO ONE (21:10)
[2017-05-24 21:32] VITALS: BP 116/46
--- NOTE | 2017-05-24 21:56 | ED ---
Zaid Giron Gabriel, scribed for Luis Dean MD on 05/24/17 at 1906 . GI/ HPI - HPI Summary HPI Summary: This patient is a 81 year old M presenting to [facility] accompanied by his daughter with a chief complaint of diarrhea since 05-20-17. The patient rates the pain 0/ 10 in severity. Patient reports ABD cramping before the diarrhea. Patient denies blood in stool and ABD pain. Pt had a knee replacement a month ago and has been on Keflex for it. He took 2 colace on 05-20-17 and has not been able to stop his diarrhea since even with Imodium. - History of Current Complaint Chief Complaint: EDNauseaVomitDiarrh Stated Complaint: FEVER/DIARRHEA Hx Obtained From: Patient Onset/Duration: Started Hours Ago - 4, Still Present Timing: Constant Severity: Moderate Current Severity: Moderate Pain Intensity: 0 Associated Signs and Symptoms: Positive: Other: - ABD cramping before the diarrhea - Additional Pertinent History Primary Care Physician: [id number] - Allergy/Home Medications Allergies/Adverse Reactions: Allergies Allergy/AdvReac Type Severity Reaction Status Date / Time Penicillins Allergy Hives Verified 05/24/17 16:37 Home Medications: Home Medications Multivitamins/Minerals TAB* [Theragran/minerals TAB*] 1 tab PO 189905/24/17 [ History Confirmed 05/24/17] Pravastatin (NF) [Pravachol (NF)] 80 mg PO 0 05/24/17 [History Confirmed ] Ubidecarenone [Co Q-10] 200 mg PO 189905/24/17 [History Confirmed 05/24/17] PMH/Surg Hx/FS Hx/Imm Hx Endocrine/Hematology History: Reports: Hx Thyroid Disease - on levothyroxine Denies: Hx Diabetes Cardiovascular History: Reports: Hx Coronary Artery Disease - quadruple heart bypass 03/2012, Hx Hypertension Denies: Hx Hypercholesterolemia, Hx Pacemaker/ICD, Hx Peripheral Vascular Disease Respiratory History: Reports: Hx Asthma, Hx Pulmonary Embolism - both lungs and DVT posterior left knee 12/2012, Hx Sleep Apnea - has not used machine in years GI History: Reports: Hx Gastroesophageal Reflux Disease, Hx Hiatal Hernia History: Reports: Other Problems/Disorders - prostate removed 02/2001 Musculoskeletal History: Reports: Hx Arthritis, Hx Bursitis - right hip Denies: Hx Osteoporosis Sensory History: Reports: Hx Contacts or Glasses Denies: Hx Cataracts, Hx Glaucoma, Hx Hearing Aid Opthamlomology History: Reports: Hx Contacts or Glasses Denies: Hx Cataracts, Hx Glaucoma Neurological History: Reports: 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, Bilat feet Denies: Hx Headaches, Hx Seizures, Hx Transient Ischemic Attacks (TIA) Psychiatric History: Denies: Hx Anxiety, Hx Depression, Hx Panic Disorder - Cancer History Cancer Type, Location and Year: BLADDER Hx Chemotherapy: No - Surgical History Surgery Procedure, Year, and Place: LEFT SHOULDER ROTATOR CUFF REPAIR 04/2008, APPENDECTOMY , HERNIA , TENNIS ELBOW , PROSTATE(CANCER) 02/2001, BLADDER (CANCER) 06/2011, cardiac cath & QUAD BYPASS 04/11/2012 Hx Anesthesia Reactions: No Infectious Disease History: No Infectious Disease History: Reports: Hx of Known/Suspected MRSA - wound- left knee 4-5 years ago, Hx Shingles - 12+ years ago Denies: Traveled Outside the [place] in Last 30 Days - Family History Known Family History: Positive: Hypertension - Social History Alcohol Use: None Hx Substance Use: No Substance Use Type: Reports: None Hx Tobacco Use: No Smoking Status (MU): Never Smoked Tobacco Review of Systems Positive: Diarrhea. Negative: Abdominal Pain Negative: Slurred Speech All Other Systems Reviewed And Are Negative: Yes Physical Exam - Summary Physical Exam Summary: Appearance: The patient is well-nourished in no acute distress and in no acute pain. Skin: The skin is warm and dry and skin color reflects adequate perfusion. HEENT: The head is normocephalic and atraumatic. The pupils are equal and reactive. The conjunctivae are clear and without drainage. Nares are patent and without drainage. Mouth reveals moist mucous membranes and the throat is without erythema and exudate. The external ears are intact. The ear canals are patent and without drainage. The tympanic membranes are intact. Neck: the neck is supple with full range of motion and non-tender. There are no carotid bruits. There is no neck vein distension. Respiratory: Chest is non-tender. Lungs are clear to auscultation and breath sounds are symmetrical and equal. Cardiovascular: Heart is regular rate and rhythm. There is no murmur or rub auscultated. There is no peripheral edema and pulses are symmetrical and equal. Abdomen: The abdomen is soft and non-tender. There are normal bowel sounds heard in all four quadrants and there is no organomegaly palpated. Musculoskeletal: There is no back tenderness noted. Extremities are non-tender with full range of motion. There is good capillary refill. There is no peripheral edema or calf tenderness elicited. Neurological: Patient is alert and oriented to person, place and time. The patient has symmetrical motor strength in all four extremities. Cranial nerves are grossly intact. Deep tendon reflexes are symmetrical and equal in all four extremities. Psychiatric: The patient has an appropriate affect and does not exhibit any anxiety or depression. Triage Information Reviewed: Yes Vital Signs On Initial Exam: Initial Vitals Temp Pulse Resp BP Pulse Ox 99.2 F 78 16 104/50 100 05/24/17 16:31 05/24/17 16:31 05/24/17 16:31 05/24/17 16:31 05/24/17 16:31 Vital Signs Reviewed: Yes Diagnostics - Vital Signs Vital Signs Temp Pulse Resp BP Pulse Ox 05/24/17 18:40 73 95 05/24/17 18:37 119/59 05/24/17 16:31 99.2 F 78 16 104/50 100 - Laboratory Lab Results: Lab Results 05/24/17 Range/Units 18:45 WBC 14.5 H (3.5-10.8) 10^3/ul RBC 3.56 L (4.0-5.4) 10^6/ul Hgb 11.2 L (14.0-18.0) g/dl Hct 34 L (42-52) % MCV 96 H (80-94) fL MCH 31 (27-31) pg MCHC 33 (31-36) g/dl RDW 16 H (10.5-15) % Plt Count 205 (150-450) 10^3/ul MPV 10 (7.4-10.4) um3 Neut % (Auto) 77.0 (38-83) % Lymph % (Auto) 11.8 L (25-47) % [place] % (Auto) 7.2 H (0-7) % Eos % (Auto) 2.9 (0-6) % Baso % (Auto) 1.1 (0-2) % Absolute Neuts (auto) 11.2 H (1.5-7.7) 10^3/ul Absolute Lymphs (auto) 1.7 (1.0-4.8) 10^3/ul Absolute Monos (auto) 1.0 H (0-0.8) 10^3/ul Absolute Eos (auto) 0.4 (0-0.6) 10^3/ul Absolute Basos (auto) 0.2 (0-0.2) 10^3/ul Absolute Nucleated RBC 0 10^3/ul Nucleated RBC % 0 Result Diagrams: 05/24/17 18:45 05/24/17 18:45 Lab Statement: Any lab studies that have been ordered have been reviewed, and results considered in the medical decision making process. GIGU Course/Dx - Course Course Of Treatment: Mr. Roberts has been on Keflex post op and developed diarrhea. He has no abdominal pain or vomiting but has no appetite. He was found to have c.diff colitis and was started on Flagyl as an outpatient. - Diagnoses Provider Diagnoses: C. difficile colitis Discharge - Discharge Plan Condition: Stable Disposition: HOME Prescriptions: metroNIDAZOLE [Flagyl 500 MG TAB] 500 mg PO TID #30 tab metroNIDAZOLE [Flagyl 500 MG TAB] 500 mg PO TID #30 tab Patient Education Materials: Clostridium Difficile Infection (ED) Referrals: Claire Paniagua MD [Primary Care Provider] - 3 Days Additional Instructions: RETURN TO EMERGENCY DEPARTMENT FOR ANY NEW OR WORSENING SYMPTOMS The documentation as recorded by the Zaid mitchell Gabriel accurately reflects the service I personally performed and the decisions made by , Luis Dean MD.
== END 2017-05-24 21:51 | disposition home or self-care (01) ==
LOC: ED 16:18
DX: A04.72 Enterocolitis due to Clostridium difficile, not specified as recurrent (principal); Z88.0 Allergy status to penicillin
CPT/HCPCS: 36415; 80053; 82272; 83630; 85025; 87045; 87046; 87077; 87493; 87899; 99282; A9270-GY